=== PATIENT | male | born 1950 | race Caucasian/White ===

== ENCOUNTER → 2016-11-23 | Outpatient (CLI) | payer OTHER, MEDICARE ==
[~2016-11-23] MED LIST: AMLO-114 PO; APR25 PO; COEN1CAP17 PO; FLUT0.0529 NAE; HYDR25TA4 PO; INSUINJ14 SC; INSUINJ4 SQ; LISI40TA PO; LOVA40TA4 PO; METO1TAB69 PO; MULT-190 PO; OMEP40CA PO; OXYC-106 PO; POTA-335 PO; RST/30 PO; SERT-234 PO; TRAZ50TA35 PO
[2016-11-27 00:05] LABS: CRYPTOSPORIDIUM AG TC 37213 NOT DETECTED (NOT DETECTED); O&P GIARDIA AG NOT DETECTED (NOT DETECTED)
== END | disposition home or self-care (01) ==
LOC: C.LABPBG 14:09
PROVIDERS: ATTEND Internal Medicine
DX: K52.9 Noninfective gastroenteritis and colitis, unspecified (principal)

== ENCOUNTER → 2016-12-07 | Outpatient (CLI) | payer OTHER, MEDICARE ==
[2016-12-07 17:34] LABS: BASO % 0.3 %; BASO ABS # 0.03 K/uL (0-0.2); COMPLETE YES; EOS % 7.6 %; IG% 0.1 %; LYMPH % 21.9 %; LYMPH ABS # 1.92 K/uL (1.2-3.4); MEAN CELL VOLUME 86.8 fL (80-100); MEAN CORPUSCULAR HEMOGLOBIN 30.8 pg (25-34); MEAN CORPUSCULAR HGB CONC 35.5 g/dl (32-36); MEAN PLATELET VOLUME 10.3 fL (7.4-10.4); MONO % 6.4 %; NEUT % 63.7 %; PLATELET COUNT 243 K/uL (130-400); RED BLOOD COUNT 5.07 M/uL (4.7-6.1); WHITE BLOOD COUNT 8.76 K/uL (4.8-10.8)
[2016-12-07 17:50] LABS: ALT/SGPT 29 U/L (12-78); AST/SGOT 15 U/L (15-37); BLOOD UREA NITROGEN 18 mg/dl (7-18); BUN/CREATININE RATIO 10.8 (10-20); CALCIUM 9.3 mg/dl (8.5-10.1); CARBON DIOXIDE 28 mmol/L (21-32); CHLORIDE 100 mmol/L (98-107); GLUCOSE 125 mg/dl (70-99); POTASSIUM 3.2 mmol/L (3.5-5.1); SODIUM 139 mmol/L (136-145)
[2016-12-07 18:03] LABS: CHOLESTEROL/HDL RATIO 4.3; THYROID STIMULATING HORMONE 0.713 uIu/ml (0.300-4.500)
[2016-12-07 18:03] LABS: ALB/GLOB RATIO 1.2 (0.9-2); ALKALINE PHOSPHATASE 71 U/L (45-117); IMMUNOGLOBULN A 70.2 mg/dL (70-400); IMMUNOGLOBULN M 83.3 mg/dL (40-230)
[2016-12-10 13:18] LABS: ALBUMIN 4.4 G/DL (3.8-4.8); GAMMA GLOBULIN 0.9 G/DL (0.8-1.7); IMMUNOFIXATION IGA SERUM 66 MG/DL (81-463); IMMUNOFIXATION IGG SERUM 919 MG/DL (694-1618); IMMUNOFIXATION IGM SERUM 88 MG/DL (48-271); TOTAL PROTEIN 7.2 G/DL (6.2-8.3)
== END | disposition home or self-care (01) ==
LOC: C.LABPBG 11:58
PROVIDERS: ATTEND Internal Medicine Gastroenterology
DX: D47.2 Monoclonal gammopathy (principal); E78.5 Hyperlipidemia, unspecified; E11.22 Type 2 diabetes mellitus with diabetic chronic kidney disease; K22.70 Barrett's esophagus without dysplasia; K29.80 Duodenitis without bleeding; R63.0 Anorexia; R63.4 Abnormal weight loss; R53.83 Other fatigue

== ENCOUNTER → 2017-01-06 | Outpatient (CLI) | payer OTHER, MEDICARE ==
[2017-01-06 12:22] LABS: HEMATOCRIT 41.4 % (42-52); MEAN CELL VOLUME 86.3 fL (80-100); MEAN CORPUSCULAR HEMOGLOBIN 30.4 pg (25-34); MEAN CORPUSCULAR HGB CONC 35.3 g/dl (32-36); MEAN PLATELET VOLUME 9.9 fL (7.4-10.4); PLATELET COUNT 227 K/uL (130-400); WHITE BLOOD COUNT 9.37 K/uL (4.8-10.8)
[2017-01-06 12:31] LABS: BLOOD UREA NITROGEN 24 mg/dl (7-18); BUN/CREATININE RATIO 13.9 (10-20); CARBON DIOXIDE 31 mmol/L (21-32); CHLORIDE 100 mmol/L (98-107); GLUCOSE 156 mg/dl (70-99); PHOSPHORUS 3.1 mg/dl (2.5-4.9); POTASSIUM 3.1 mmol/L (3.5-5.1); SODIUM 139 mmol/L (136-145)
[2017-01-06 12:38] LABS: URINE APPEARANCE CLEAR (CLEAR); URINE BILIRUBIN NEG (NEG); URINE COLOR YELLOW; URINE EPITHELIAL CELL AUTO 0-5 /lpf (0-5); URINE NITRITE NEG (NEG); URINE SPECIFIC GRAVITY 1.015 (1.000-1.030); UROBILINOGEN NEG (NEG)
[2017-01-06 12:43] LABS: MANUAL MICROSCOPIC REQUIRED? NO; REVIEW REQ? NO
[2017-01-06 12:49] LABS: URINE PROTIEN/CREAT RATIO 0.1 (0-0.2); URINE TOTAL PROTEIN 13.4 mg/dl (0-11.9)
[2017-01-06 13:19] LABS: ESTIMATED AVERAGE GLUCOSE 111 mg/dl; HA1C FLAG Normal (Normal)
== END | disposition home or self-care (01) ==
LOC: C.LABPBG 09:29
PROVIDERS: ATTEND Internal Medicine Nephrology
DX: I12.9 Hypertensive chronic kidney disease with stage 1 through stage 4 chronic kidney disease, or unspecified chronic kidney disease (principal); N28.1 Cyst of kidney, acquired; E55.9 Vitamin D deficiency, unspecified; N18.2 Chronic kidney disease, stage 2 (mild); E11.22 Type 2 diabetes mellitus with diabetic chronic kidney disease

== ENCOUNTER → 2017-02-15 | Outpatient (CLI) | payer OTHER, MEDICARE ==
[~2017-02-15] MED LIST changes: +METO100T44 PO; -METO1TAB69 PO
== END | disposition home or self-care (01) ==
LOC: C.LABPBG 11:42
PROVIDERS: ATTEND Internal Medicine Gastroenterology
DX: E27.0 Other adrenocortical overactivity (principal)

== ENCOUNTER → 2017-04-25 | Outpatient (CLI) | payer OTHER, MEDICARE ==
[~2017-04-25] MED LIST changes: -METO100T44 PO; +METO1TAB69 PO
--- NOTE | 2017-04-25 15:28 | DIAGNOSTIC IMAGING REPORT ---
ULTRASOUND KIDNEYS AND BLADDER CLINICAL HISTORY: Renal cyst. COMPARISON STUDY: Renal ultrasound dated 04/26/[address] dated 07/10/2014. Abdominal MRI dated 10/21/2015. TECHNIQUE: Real-time, grayscale, and color flow sonography of the kidneys and bladder is performed. Images are reviewed in the transverse and longitudinal planes. FINDINGS: Kidneys: The kidneys demonstrate cortical atrophy. The right kidney measures 9.3 x 6.7 x 5.9 cm and the left kidney measures 10.1 x 5.5 x 4.2 cm. There is no hydronephrosis. No shadowing renal calculi are identified. Bilateral simple cysts measure up to 2.0 cm. There is unchanged appearance of a complex shadowing lesion in the lower pole the left kidney measuring up to 2.2 cm. No internal flow is shown color imaging. No perinephric fluid is identified. Bladder: The bladder is partially decompressed. The bladder wall appears mildly thickened and trabeculated suggesting the sequelae of chronic outlet obstruction. Ureteral jets were not seen. IMPRESSION: 1. The kidneys demonstrate cortical atrophy and are without hydronephrosis. 2. There is been no significant change in the appearance of an indeterminant hypoechoic/complex lesion arising from the lower pole of left kidney which measures 2.2 cm when compared to the 04/26/2016 examination. Continued follow-up is recommended. 3. Additional simple renal cysts are noted. 4. The bladder wall appears mildly thickened and trabeculated suggesting chronic outlet obstruction. Electronically signed by: Christiano Burnette M.D. 04/25/2017 3:27 PM Dictated Date/Time: 04/25/2017 3:23 PM
== END | disposition home or self-care (01) ==
LOC: C.ULTR 13:47
PROVIDERS: ATTEND Urology
DX: N28.1 Cyst of kidney, acquired (principal)

== ENCOUNTER → 2017-05-12 | Outpatient (CLI) | payer OTHER, MEDICARE ==
[~2017-05-12] VITALS: Ht 172.7 cm; Wt 99.7 kg
[2017-05-12 12:36] VITALS: BP 120/76; PULSE 72; Ht 172.7 cm; Wt 99.7 kg
== END | disposition home or self-care (01) ==
LOC: C.NEUR 11:30
PROVIDERS: ATTEND Internal Medicine Pulmonary Disease
DX: G47.33 Obstructive sleep apnea (adult) (pediatric) (principal)

== ENCOUNTER → 2017-05-12 | Outpatient (CLI) | payer OTHER, MEDICARE ==
--- NOTE | 2017-05-19 09:36 | CODING QUERY MEDICAL NECESSITY ---
SUPPORTING DIAGNOSIS NEEDED Dr. Rodgers, A supporting diagnosis is required for the test/procedure performed on this patient in order for us to be reimbursed by the patient's insurance. Please provide a supporting diagnosis for the following test/procedure listed below next to the test name along with your signature. *If there is no additional diagnosis for this patient that would support the following test/procedure please document that below next to the test/procedure. Test(s)/Procedure(s) that require a supporting diagnosis: * [id number] PSA DIAGNOSIS: DATE OF SERVICE: 05/12/17 Provider Signature: Date: Thank you Michi Haskins [facility] Once completed, please kindly fax back to [phone] For questions please call [phone]
== END | disposition home or self-care (01) ==
LOC: C.LABPBG 13:44
PROVIDERS: ATTEND Internal Medicine
DX: N28.1 Cyst of kidney, acquired (principal); G47.33 Obstructive sleep apnea (adult) (pediatric); N40.1 Benign prostatic hyperplasia with lower urinary tract symptoms

== ENCOUNTER → 2017-05-26 | Outpatient (CLI) | payer OTHER, MEDICARE ==
[2017-05-26 17:48] LABS: ALT/SGPT 27 U/L (12-78); AST/SGOT 15 U/L (15-37); BLOOD UREA NITROGEN 17 mg/dl (7-18); BUN/CREATININE RATIO 9.4 (10-20); CALCIUM 9.1 mg/dl (8.5-10.1); CARBON DIOXIDE 28 mmol/L (21-32); CHLORIDE 106 mmol/L (98-107); GLUCOSE 149 mg/dl (70-99); HDL CHOLESTEROL 42 mg/dl; POTASSIUM 3.7 mmol/L (3.5-5.1); SODIUM 140 mmol/L (136-145)
[2017-05-26 17:50] LABS: ALB/GLOB RATIO 1.2 (0.9-2); ALKALINE PHOSPHATASE 70 U/L (45-117); CHOLESTEROL 155 mg/dl (0-200); CHOLESTEROL/HDL RATIO 3.7; LDL CHOLESTEROL CALCULATED 68 mg/dl; TRIGLYCERIDES 226 mg/dl (0-150); VERY LOW DENSITY LIPOPROT CALC 45 mg/dl
[2017-05-27 07:27] LABS: ESTIMATED AVERAGE GLUCOSE 126 mg/dl; HA1C FLAG Normal (Normal)
--- NOTE | 2017-06-01 07:54 | CODING QUERY MEDICAL NECESSITY ---
CQSUPPORTING DIAGNOSIS NEEDED A supporting diagnosis is required for the test/procedure performed on this patient in order for us to be reimbursed by the patient's insurance. Please provide a supporting diagnosis for the following test/procedure listed below next to the test name along with your signature. *If there is no additional diagnosis for this patient that would support the following test/procedure please document that below next to the test/procedure. Test(s)/Procedure(s) that require a supporting diagnosis: PEACE 05/26/17 GLYCATED HEMOGLOBIN TEST Provider Signature: Date: Thank you Jeanie [facility] Once completed, please kindly fax back to [phone] For questions please call [phone]
== END | disposition home or self-care (01) ==
LOC: C.LABPBG 11:57
PROVIDERS: ATTEND Internal Medicine
DX: G89.4 Chronic pain syndrome (principal); E11.9 Type 2 diabetes mellitus without complications

== ENCOUNTER → 2017-06-10 | Outpatient (CLI) | payer OTHER, MEDICARE ==
--- NOTE | 2017-06-10 16:33 | DIAGNOSTIC IMAGING REPORT ---
CHEST 2 VIEWS ROUTINE CLINICAL HISTORY: 67 years-old Male presenting with asbestos exposure. TECHNIQUE: PA and lateral views of the chest were obtained. COMPARISON: 04/03/2014. FINDINGS: Atherosclerosis of aortic arch. Cardiac silhouette within normal limits, apparent decrease in size from prior. Lungs and pleural spaces clear. Degenerative changes of the spine. Mild anterior vertebral body height loss in one of the mid thoracic vertebral bodies. Cholecystectomy clips noted. IMPRESSION: 1. No acute cardiopulmonary disease. 2. Given the clinical history of the specimens exposure, calcified pleural plaques would be better demonstrated on CT. Electronically signed by: Daniel Prescott M.D. 06/10/2017 4:32 PM Dictated Date/Time: 06/10/2017 4:30 PM
== END | disposition home or self-care (01) ==
LOC: C.RAD 15:11
PROVIDERS: ATTEND Internal Medicine
DX: Z77.090 Contact with and (suspected) exposure to asbestos (principal)

== ENCOUNTER → 2017-06-17 | Outpatient (CLI) | payer OTHER, MEDICARE ==
[2017-06-17 17:23] LABS: BASO % 0.4 %; BASO ABS # 0.03 K/uL (0-0.2); COMPLETE YES; EOS % 5.1 %; HEMATOCRIT 44.5 % (42-52); IG% 0.3 %; LYMPH % 22.5 %; LYMPH ABS # 1.73 K/uL (1.2-3.4); MEAN CELL VOLUME 86.7 fL (80-100); MEAN CORPUSCULAR HGB CONC 35.7 g/dl (32-36); MEAN PLATELET VOLUME 10.3 fL (7.4-10.4); MONO % 7.1 %; NEUT % 64.6 %; PLATELET COUNT 217 K/uL (130-400); RED BLOOD COUNT 5.13 M/uL (4.7-6.1)
[2017-06-17 17:44] LABS: ALT/SGPT 23 U/L (12-78); BLOOD UREA NITROGEN 18 mg/dl (7-18); BUN/CREATININE RATIO 9.2 (10-20); CALCIUM 9.7 mg/dl (8.5-10.1); CARBON DIOXIDE 25 mmol/L (21-32); CHLORIDE 101 mmol/L (98-107); GLUCOSE 161 mg/dl (70-99); SODIUM 136 mmol/L (136-145)
[2017-06-17 17:47] LABS: ALB/GLOB RATIO 1.2 (0.9-2); ALKALINE PHOSPHATASE 72 U/L (45-117); AST/SGOT 18 U/L (15-37)
[2017-06-21 19:10] LABS: ALBUMIN 4.6 G/DL (3.8-4.8); GAMMA GLOBULIN 0.7 G/DL (0.8-1.7); IMMUNOFIXATION IGA SERUM 75 MG/DL (81-463); IMMUNOFIXATION IGG SERUM 870 MG/DL (694-1618); IMMUNOFIXATION IGM SERUM 84 MG/DL (48-271); TOTAL PROTEIN 7.2 G/DL (6.2-8.3)
== END | disposition home or self-care (01) ==
LOC: C.LABPBG 14:17
PROVIDERS: ATTEND Internal Medicine
DX: D47.2 Monoclonal gammopathy (principal)

== ENCOUNTER → 2017-06-21 | Outpatient (CLI) | payer OTHER, MEDICARE ==
--- NOTE | 2017-06-21 13:56 | DIAGNOSTIC IMAGING REPORT ---
CT SCAN OF THE CHEST WITHOUT IV CONTRAST CLINICAL HISTORY: Asbestos exposure. Dyspnea. COMPARISON STUDY: Chest x-ray dated 06/10/2017. TECHNIQUE: CT scan of the thorax was performed from the thoracic inlet to the upper abdomen. Images are reviewed in the axial, sagittal, and coronal planes. IV contrast was not administered for this examination as per the referring clinician. A dose lowering technique was utilized adhering to the principles of ALARA. CT DOSE: 666.23 mGycm FINDINGS: Thyroid: Imaged portions of the thyroid gland are normal in size and attenuation. Thoracic aorta: There is mild atherosclerotic calcification of the thoracic aorta, which is normal in caliber and demonstrates standard 3-vessel arch anatomy. Heart: The heart is enlarged and there is a small to moderate pericardial effusion. The coronary arteries are densely calcified. The pulmonary trunk is normal in caliber. Lungs and pleural spaces: There is no airspace consolidation typical for pneumonia. Trace pleural effusions are identified. The trachea and central airways are clear. There are 6 mm and 7 mm foci of nodular pleural thickening seen along the right major fissure on images #114 and #122. Mediastinum: There is no mediastinal lymphadenopathy. Adilene: Not well assessed without IV contrast. Axillae: There is no axillary lymphadenopathy. Upper abdomen: Cholecystectomy clips are noted. There is a tiny hiatal hernia. A subcentimeter cortical hypodensity in the left upper pole likely represent a tiny complex cyst but is too small for definitive characterization. Skeletal structures: Spondylotic change is seen throughout the thoracic spine. Calcified joint bodies are noted in the left shoulder. No lytic or blastic bony lesions are seen. IMPRESSION: 1. Cardiomegaly noting a small to moderate pericardial effusion. 2. There are trace pleural effusions. No airspace consolidation is seen typical for pneumonia. 3. There are 2 subcentimeter foci of nodular pleural thickening along the right major fissure. These are pathologically indeterminant but of low suspicion. These can be followed if clinically warranted. See below. Please refer to below summary of Fleischner criteria recommendations for follow-up of incidental CT nodules (Tavo Multani, Guidelines for management of small pulmonary nodules detected on CT scans: A statement from the Fleischner Society, Radiology 237: [phone].) SOLID NODULES Solitary nodule size: <6 mm * low risk patients: no follow-up needed * high risk patients: optional CT at 12 months Solitary nodule size: 6-8 mm * low risk patients: follow-up at 6-12 months, then consider further follow-up at 18-24 months * high risk patients: initial follow-up CT at 6-12 months and then at 18-24 months if no change Solitary nodule size: >8 mm * either low or high risk patients - consider follow-up CT at 3 months, and/or CT-PET, and/or biopsy Multiple nodules size: <6 mm * low risk patients: no routine follow-up * high risk patients: optional CT at 12 months Multiple nodules size: 6-8 mm * low risk patients: follow-up at 3-6 months, then consider further follow-up at 18-24 months * high risk patients: follow-up at 3-6 months, then at 18-24 months if no change Multiple nodules size: >8 mm * low risk patients: follow-up at 3-6 months, then consider further follow-up at 18-24 months * high risk patients: follow-up at 3-6 months, then at 18-24 months if no change Note: newly detected indeterminate nodule in persons 35 years of age or older. * low risk patients: minimal or absent history of smoking and/or other known risk factors * high risk patients: history of smoking or of other known risk factors (e.g. first degree relative with lung cancer, or exposure to asbestos, radon, uranium) * if a nodule up to 8 mm is partly solid or is ground glass further follow-up is required after 24 months to exclude possible slow growing adenocarcinoma (MENA) SUBSOLID NODULES Solitary pure ground-glass nodule * nodule size <6 mm - no CT follow-up required * nodule size >=6 mm - follow-up CT at 6-12 months, then every 2 years until 5 years Solitary part-solid nodule * nodule size <6 mm - no CT follow-up required * nodule size >=6 mm - follow-up CT at 3-6 months. If unchanged, and solid component remains <6 mm, then annual follow-up for 5 years Multiple subsolid nodules * nodule size <6 mm - follow-up CT at 3-6 months, consider further follow-up at 2 and 4 years if stable * nodule size >=6 mm - follow-up CT at 3-6 months, subsequent management based on the most suspicious nodule(s) Electronically signed by: Christiano Burnette M.D. 06/21/2017 1:55 PM Dictated Date/Time: 06/21/2017 1:49 PM
== END | disposition home or self-care (01) ==
LOC: C.CTS 13:29
PROVIDERS: ATTEND Internal Medicine
DX: Z77.090 Contact with and (suspected) exposure to asbestos (principal)

== ENCOUNTER → 2017-06-30 | Outpatient (CLI) | payer OTHER, MEDICARE ==
[2017-06-30 13:54] LABS: BLOOD UREA NITROGEN 23 mg/dl (7-18); BUN/CREATININE RATIO 11.6 (10-20); CALCIUM 9.5 mg/dl (8.5-10.1); CARBON DIOXIDE 29 mmol/L (21-32); CHLORIDE 104 mmol/L (98-107); GLUCOSE 115 mg/dl (70-99); POTASSIUM 3.9 mmol/L (3.5-5.1); SODIUM 138 mmol/L (136-145)
== END | disposition home or self-care (01) ==
LOC: C.LABBC 11:46
PROVIDERS: ATTEND Internal Medicine
DX: E78.6 Lipoprotein deficiency (principal)

== ENCOUNTER → 2017-10-18 | Outpatient (CLI) | payer OTHER, MEDICARE ==
[~2017-10-18] MED LIST changes: -AMLO-114 PO; +AMLO10TA3 PO; +BENZ100C84 PO; +CINN1CAP2 PO; +FLUO20CA36 PO; +FLUT0.15 NAE; +HYDR-4079 PO; +KETO10TA PO; +METO100T44 PO; -METO1TAB69 PO; +OMEG10007 PO; -OXYC-106 PO; +OXYC-594 PO; +PANT40TA PO; +POTA20TA13 PO; +TURM1CAP2 PO; +[UNRECOGNIZED DRUG - CODE] PO; +[UNRECOGNIZED DRUG - OTHER] PO
--- NOTE | 2017-10-18 09:22 | DIAGNOSTIC IMAGING REPORT ---
(CHEST) THORAX WITHOUT CLINICAL HISTORY: 67 years-old Male presenting with LUNG NODULE, cough. TECHNIQUE: Multidetector CT imaging of the chest was performed without the use of intravenous contrast. IV contrast: None. A dose lowering technique was used consistent with the principles of ALARA (as low as reasonably achievable). COMPARISON: 06/21/2017. CT DOSE (mGy.cm): The estimated cumulative dose is 541.51 mGycm. FINDINGS: [employer] topogram: Unremarkable. On soft tissue windows, normal thyroid and thoracic inlet. No axillary, supraclavicular, or mediastinal lymphadenopathy. Evaluation of the tamiko limited without intravenous contrast. Atherosclerosis of the aorta. Normal heart size. Coronary artery calcification. Small pericardial effusion. No pleural effusion. Cholecystectomy clips noted. Unchanged mild perinephric fat stranding. Nodular thickening of the left adrenal gland, nonspecific. On lung windows, solid polygonal fissural nodule in the right middle lobe measuring 6 mm (series 4 image 173), new from prior. Solid triangular peripheral 3 mm nodule in the right middle lobe (series 4 image 188), unchanged. Previously noted solid polygonal fissural 7 mm nodule in the superior segment of the right lower lobe (series 4 image 116), unchanged. Adjacent slightly more superior solid 4 mm fissural nodule in the superior segment of the right lower lobe (series 4 image 109), unchanged. Airways patent. On bone windows, degenerative changes of the spine. Old rib fracture one of the right posterior ribs. Fluid noted in the left subscapularis muscle associated with chronic fracture of the left coracoid process. IMPRESSION: 1. Interval development of a new 6 mm solid nodule in the right middle lobe. Remaining nodules measuring up to 7 mm in the right lung stable from prior. Follow-up recommended per Brooke Society 2017 recommendations below. 2. Persistent small pericardial effusion. Please refer to below summary of Fleischner Society 2017 recommendations for follow-up of incidental CT nodules (H Rangel et al. Guidelines for management of incidental pulmonary nodules detected on CT images: From the Fleischner Society 2017. Radiology 2017; 284: 228-243.) SOLID NODULES Single nodule; size < 6 mm * Low risk patients: No routine follow-up * High risk patients: Optional CT at 12 months Single nodule; size 6-8 mm * Low risk patients: CT at 6-12 months, then consider CT at 18-24 months * High risk patients: CT at 6-12 months, then at 18-24 months Single nodule; size > 8 mm * Either low or high risk patients: Considered CT at 3 months, PET/CT, or tissue sampling Multiple nodules; size < 6 mm * Low risk patients: No routine follow up * High risk patients: Optional CT at 12 months Multiple nodules; size 6-8 mm * Low risk patients: CT at 3-6 months, then consider CT at 18-24 months * High risk patients: CT at 3-6 months, then at 18-24 months Multiple nodules; size > 8 mm * Low risk patients: CT at 3-6 months, then consider at 18-24 months * High risk patients: CT at 3-6 months, then at 18-24 months Note: These guidelines apply to incidental nodules. These guidelines do not apply to patients younger than 35 years, immunocompromised patients, or patients with cancer. * Low risk patients: Minimal or absent history of smoking and/or other known risk factors * High risk patients: History of smoking, exposure to other carcinogens, emphysema, fibrosis, upper lobe location, family history of lung cancer, etc. * If a nodule up to 8 mm is partly solid or is ground glass, further follow-up is required after 24 months to exclude possible slow growing adenocarcinoma. SUBSOLID NODULES Single ground-glass nodule * Nodule size < 6 mm: No routine follow-up * Nodule size > or = 6 mm: CT at 6-12 months to confirm persistence, then CT every 2 years until 5 years Single part-solid nodule * Nodule size < 6 mm: No routine follow-up * Nodules size > or = 6 mm: CT at 3-6 months to confirm persistence. If unchanged and solid component remains < 6 mm, annual CT should be performed for 5 years Multiple nodules * Nodule size < 6 mm: CT at 3-6 months. If stable, consider CT at 2 and 4 years. * Nodules size > or = 6 mm: CT at 3-6 months. Subsequent management based on the most suspicious nodule(s) Electronically signed by: Daniel Prescott M.D. 10/18/2017 9:21 AM Dictated Date/Time: 10/18/2017 9:14 AM
== END | disposition home or self-care (01) ==
LOC: C.CTS 08:59
PROVIDERS: ATTEND Physician Assistant
DX: R05 Cough (principal); R91.1 Solitary pulmonary nodule

== ENCOUNTER → 2017-12-05 | Outpatient (CLI) | payer OTHER, MEDICARE ==
[~2017-12-05] MED LIST changes: +AMLO-114 PO; -AMLO10TA3 PO; -BENZ100C84 PO; -CINN1CAP2 PO; -FLUO20CA36 PO; -FLUT0.15 NAE; -HYDR-4079 PO; -KETO10TA PO; -OMEG10007 PO; +OXYC-106 PO; -OXYC-594 PO; -PANT40TA PO; -POTA20TA13 PO; -TURM1CAP2 PO; -[UNRECOGNIZED DRUG - CODE] PO; -[UNRECOGNIZED DRUG - OTHER] PO
[2017-12-05 12:23] LABS: BASO % 0.7 %; BASO ABS # 0.05 K/uL (0-0.2); EOS ABS # 0.65 K/uL (0-0.5); HEMATOCRIT 46.3 % (42-52); HEMOGLOBIN 16.1 g/dL (14.0-18.0); IG# 0.03 K/uL (0.00-0.02); LYMPH ABS # 1.73 K/uL (1.2-3.4); MEAN CELL VOLUME 87.5 fL (80-100); MEAN CORPUSCULAR HEMOGLOBIN 30.4 pg (25-34); MEAN CORPUSCULAR HGB CONC 34.8 g/dl (32-36); MEAN PLATELET VOLUME 9.9 fL (7.4-10.4); MONO % 6.8 %; MONO ABS # 0.49 K/uL (0.11-0.59); NEUT % 59.1 %; NEUT ABS # 4.25 K/uL (1.4-6.5); PLATELET COUNT 213 K/uL (130-400); RED CELL DISTRIBUTION WIDTH SD 41.4 fL (36.4-46.3)
[2017-12-05 12:45] LABS: ALBUMIN 3.9 gm/dl (3.4-5.0); ALT/SGPT 31 U/L (12-78); AST/SGOT 14 U/L (15-37); BLOOD UREA NITROGEN 17 mg/dl (7-18); CARBON DIOXIDE 26 mmol/L (21-32); CREATININE 1.69 mg/dl (0.60-1.40); GLUCOSE 161 mg/dl (70-99); POTASSIUM 3.6 mmol/L (3.5-5.1); SODIUM 137 mmol/L (136-145)
[2017-12-05 12:57] LABS: ALKALINE PHOSPHATASE 72 U/L (45-117); CHOLESTEROL 169 mg/dl (0-200); LDL CHOLESTEROL CALCULATED 91 mg/dl; TOTAL PROTEIN 7.5 gm/dl (6.4-8.2)
[2017-12-05 13:01] LABS: HEMOGLOBIN A1C 6.3 % (4.5-5.6)
== END ==
LOC: C.LABPBG 10:19
PROVIDERS: ATTEND Internal Medicine Nephrology
DX: I12.9 Hypertensive chronic kidney disease with stage 1 through stage 4 chronic kidney disease, or unspecified chronic kidney disease (principal); N18.2 Chronic kidney disease, stage 2 (mild); E78.5 Hyperlipidemia, unspecified; F32.9 Major depressive disorder, single episode, unspecified; G47.33 Obstructive sleep apnea (adult) (pediatric); E55.9 Vitamin D deficiency, unspecified; K22.70 Barrett's esophagus without dysplasia; D47.2 Monoclonal gammopathy; E78.1 Pure hyperglyceridemia; E11.9 Type 2 diabetes mellitus without complications; Z77.090 Contact with and (suspected) exposure to asbestos

== ENCOUNTER 2018-01-04 18:01 | Observation (INO) | payer OTHER, MEDICARE ==
[~2018-01-04] VITALS: Ht 177.8 cm; Wt 98.6 kg
[2018-01-04] MEDS ORDERED: HydrALAZINE HCL 20 MG/ML VIAL IV STA ×2 (18:09→19:51)
--- NOTE | 2018-01-04 18:22 | EMERGENCY ROOM VISIT NOTE ---
History Report prepared by Reagan: Raymond Al Under the Supervision of: Dr. Christiano Bridges M.D. First contact with patient: 18:07 Chief Complaint: HYPERTENSION Stated Complaint: HIGH BLOOD PRESSURE History of Present Illness The patient is a 67 year old male who presents to the Emergency Room with complaints of persistent hypertension for the past couple of days, though it has gotten worse over the past month. The patient states that he can feel ringing in his ears. He has a history of hypertension, and he states that his blood pressure medications have changed over the years but, he believes he is taking them all as they are currently prescribed. The patient states that for a month he has been having some mild left chest discomfort intermittently, though he states that it might be from his back. The chest pain is not truly exertional although he is typically not very active. He states that he is short of breath at times, though this is not really new. He denies any urinary symptoms and fevers. Source of History: patient Onset: the past few days though worse over the past month Position: other (global) Quality: other (hypertension) Timing: worsening Associated Symptoms: + chest pain, + SOB, No fevers, No urinary symptoms Note: Associated symptoms: Ringing in his ears. Review of Systems See HPI for pertinent positives & negatives. A total of 10 systems reviewed and were otherwise negative. Past Medical & Surgical Medical Problems: (1) Diabetes (2) HTN (hypertension) Family History Diabetes mellitus FH: heart disease Hypertension Social History Smoking Status: Never Smoker Marital Status: Housing Status: lives with family Occupation Status: retired Current/Historical Medications Scheduled Amlodipine (Norvasc), 10 MG PO QPM Cinnamon (Cinnamon), 500 MG PO BID Fish Oil (Roosevelt-3), 1 CAP PO DAILY Fluoxetine HCl (Fluoxetine HCl), 60 MG PO DAILY Fluticasone Propionate (Nasal) (Flonase Allergy Relief), 2 SPRAYS DEMETRIO DAILY Hydralazine Hcl (Apresoline), 25 MG PO BID Hydrochlorothiazide (Hctz), 25 MG PO QAM Lisinopril (Zestril), 40 MG PO QAM Lovastatin (Mevacor), 40 MG PO QAM Pantoprazole (Protonix), 40 MG PO DAILY Potassium Chloride Microencaps (Potassium Chloride Er), 40 MEQ PO DAILY Pumpkin Seed (Uriplex), 1 TAB PO DAILY Temazepam (Restoril), 30 MG PO HS Trazodone Hcl (Trazodone), 50-100 MG PO HS Turmeric (Curcuma Longa) (Turmeric), 1 CAP PO DAILY [Thyme], 1 TAB PO DAILY Scheduled PRN Benzonatate (Tessalon Perles), 1 CAP PO TID PRN for Cough Hydrocodone/Acetaminophen 10MG/325MG (Lodi 10MG/325MG), 1 TAB PO Q6 PRN for Pain Allergies Coded Allergies: Penicillins (Verified Allergy, Intermediate, HIVES, 07/31/15) Dust (Verified Allergy, Unknown, ., 07/31/15) Metoprolol (Verified Allergy, Unknown, GI SYMPTOMS, 08/19/15) POLLEN (Verified Allergy, Unknown, ., 07/31/15) Physical Exam Vital Signs Date Time Temp Pulse Resp B/P (MAP) Pulse Ox O2 Delivery O2 Flow Rate FiO2 01/04/18 20:25 78 01/04/18 20:06 72 20 167/104 Room Air 01/04/18 19:31 77 17 185/121 01/04/18 19:04 187/117 01/04/18 19:01 70 14 01/04/18 18:34 96 Room Air 01/04/18 18:12 156/102 01/04/18 18:04 36.4 91 18 202/120 96 Room Air Physical Exam GENERAL: Patient is in no acute distress. HEENT: No acute trauma, normocephalic atraumatic, mucous membranes moist, no nasal congestion, no scleral icterus. NECK: No stridor, no adenopathy, no meningismus, trachea is midline. LUNGS: Clear to auscultation bilaterally, no wheeze, no rhonchi, breath sounds equal. HEART: Without murmurs gallops or rubs, regular rate and rhythm. ABDOMEN: Soft, nontender, bowel sounds positive, no hernias, no peritonitis. EXTREMITIES: No cyanosis or edema, full range of motion of all the joints without pain or difficulty, no signs for acute trauma. NEUROLOGIC: Oriented x 3, no acute motor or sensory deficits, no focal weakness. SKIN: No rash, no jaundice, no diaphoresis. Medical Decision & Procedures ER Provider Diagnostic Interpretation: Radiology results as stated below per my review and radiologist interpretation: CHEST ONE VIEW PORTABLE HISTORY: 67 years-old Male sob acute shortness of breath COMPARISON: Chest radiograph 06/10/2017, CT chest 10/18/2017 TECHNIQUE: Portable AP view of the chest FINDINGS: Cardiomediastinal and hilar silhouettes are within normal limits. There is no pneumothorax, pleural effusion, focal airspace consolidation or overt pulmonary edema. Degenerative changes are seen about the bilateral shoulders and spine. IMPRESSION: No acute process. The above report was generated using voice recognition software. It may contain grammatical, syntax or spelling errors. Electronically signed by: Homer Whyte M.D. 01/04/2018 7:01 PM Dictated Date/Time: 01/04/2018 7:00 PM Laboratory Results 01/04/18 18:42 01/04/18 18:42 Test 01/04/18 18:42 Red Blood Count 5.00 M/uL (4.7-6.1) Mean Corpuscular Volume 85.8 fL (80-100) Mean Corpuscular Hemoglobin 30.6 pg (25-34) Mean Corpuscular Hemoglobin Concent 35.7 g/dl (32-36) RDW Standard Deviation 40.7 fL (36.4-46.3) RDW Coefficient of Variation 13.0 % (11.5-14.5) Mean Platelet Volume 9.4 fL (7.4-10.4) Anion Gap 8.0 mmol/L (3-11) Est Creatinine Clear Calc Drug Dose 54.8 ml/min Estimated GFR () 52.9 Estimated GFR (Non- 45.6 BUN/Creatinine Ratio 11.2 (10-20) Calcium Level 9.0 mg/dl (8.5-10.1) Total Bilirubin 0.6 mg/dl (0.2-1) Aspartate Amino Transf (AST/SGOT) 14 U/L (15-37) Alanine Aminotransferase (ALT/SGPT) 25 U/L (12-78) Alkaline Phosphatase 66 U/L (45-117) Troponin I < 0.015 ng/ml (0-0.045) Total Protein 7.2 gm/dl (6.4-8.2) Albumin 3.8 gm/dl (3.4-5.0) Globulin 3.4 gm/dl (2.5-4.0) Albumin/Globulin Ratio 1.1 (0.9-2) Thyroid Stimulating Hormone (TSH) 0.923 uIu/ml (0.300-4.500) Laboratory results reviewed by me. Medications Administered Medications (Trade) Dose Ordered Sig/Bria Route Start Time Stop Time Status Last Admin Dose Admin Hydralazine HCl (HydrALAZINE INJ) 10 mg NOW STAT IV 01/04/18 18:09 01/04/18 18:16 DC 01/04/18 19:01 10 MG Hydralazine HCl (HydrALAZINE INJ) 10 mg NOW STAT IV 01/04/18 19:51 01/04/18 19:52 DC 01/04/18 20:03 10 MG Acetaminophen (Tylenol Tab) 1,000 mg NOW STAT PO 01/04/18 19:51 01/04/18 19:52 DC 01/04/18 20:02 1,000 MG ECG Per My Interpretation Indication: chest pain Rate (beats per minute): 67 Rhythm: normal sinus Findings: other (No ST elevation or PVCs) Change: REPEAT EKG: Normal sinus rhythm at 78bpm. Non-specific ST change. No PVC. No ST elevation. ED Course 1806: The patient was evaluated in room C7. A complete history and physical exam was performed. 1808: Hydralazine HCl 10mg IV 1949: I reevaluated the patient, and his pressure is still high. 1950: Tylenol Tab 1000mg PO, Hydralazine HCl 10mg IV 2037: I reassessed the patient, and he thinks that he is having more chest pain than before. I discussed the treatment plan with him, and he was agreeable. 2043: Aspirin 324mg PO 2044: Nitroglycerin 0.5 inch EXT 2049: I discussed the patient's case with Sushma Vogel 2nd year resident working with Dr. Henderson, and she is going to evaluate the patient for further management. Medical Decision Differential diagnoses considered include essential hypertension, missed medication dosing, renal failure, liver failure, cardiac ischemia, cardiomegaly , electrolyte imbalance. There is no leukocytosis or worrisome anemia. No significant electrolyte abnormality or kidney failure. There is no hepatitis. The patient appears to be in a euthyroid state. EKG shows a normal sinus rhythm, no acute ischemia. Cardiac enzyme testing 1 does not suggest acute cardiac injury. Repeat EKG shows similar findings to the first EKG performed. Chest film does not show mediastinal widening, pneumonia or pneumothorax. On exam, there were no focal neurologic deficits. The patient was not toxic. He did seem slightly anxious. The patient's blood pressure was quite high. He received IV hydralazine, he received a second dose of IV hydralazine. Patient was given some oral Tylenol for a mild headache. He received oral aspirin and nitroglycerin paste. His blood pressure is improving. The patient is on numerous medications for blood pressure and it seems that he may have not been taking the hydralazine as prescribed--he initially told me he was only taking his hydralazine once a day in the morning.. This may have led to the higher blood pressure. The patient has been complaining of some chest pain for about a month. With the chest pain, with the high blood pressure, I did think further cardiac workup was required. I did speak with the patient and case management. I discussed the case with the on-call hospitalist. Right now, the patient appears to be resting comfortably. Medication Reconcilliation Current Medication List: was personally reviewed by me Blood Pressure Screening Patient's blood pressure: Elevated blood pressure Blood pressure disposition: Referred to PCP Monitored by the hospitalist Consults Time Called: 2045 Consulting Physician: Sushma Vogel 2nd year resident working with Dr. Henderson Returned Call: 2049 I discussed the patient's case with Sushma Vogel 2nd year resident working with Dr. Henderson, and she is going to evaluate the patient for further management. Impression Primary Impression: Precordial chest pain Additional Impression: Hypertensive urgency Critical Care I have personally spent greater than 30 minutes of critical care time in the direct management of this patient. This includes bedside care, interpretation of diagnostic studies and testing, discussion with consultants, the patient, and family members, and other required patient management activities. This 30 minutes is in excess of all separately billable procedures. Scribe Attestation The scribe's documentation has been prepared under my direction and personally reviewed by me in its entirety. I confirm that the note above accurately reflects all work, treatment, procedures, and medical decision making performed by me. Departure Information Dispostion Being Evaluated By Hospitalist Referrals Daniel Peter M.D. (PCP) Patient Instructions My [facility] Problem Qualifiers
[2018-01-04 18:54] LABS: HEMATOCRIT 42.9 % (42-52); HEMOGLOBIN 15.3 g/dL (14.0-18.0); MEAN CELL VOLUME 85.8 fL (80-100); MEAN CORPUSCULAR HEMOGLOBIN 30.6 pg (25-34); MEAN CORPUSCULAR HGB CONC 35.7 g/dl (32-36); MEAN PLATELET VOLUME 9.4 fL (7.4-10.4); PLATELET COUNT 178 K/uL (130-400); RED CELL DISTRIBUTION WIDTH SD 40.7 fL (36.4-46.3); WHITE BLOOD COUNT 6.85 K/uL (4.8-10.8)
--- NOTE | 2018-01-04 19:03 | DIAGNOSTIC IMAGING REPORT ---
CHEST ONE VIEW PORTABLE HISTORY: 67 years-old Male sob acute shortness of breath COMPARISON: Chest radiograph 06/10/2017, CT chest 10/18/2017 TECHNIQUE: Portable AP view of the chest FINDINGS: Cardiomediastinal and hilar silhouettes are within normal limits. There is no pneumothorax, pleural effusion, focal airspace consolidation or overt pulmonary edema. Degenerative changes are seen about the bilateral shoulders and spine. IMPRESSION: No acute process. The above report was generated using voice recognition software. It may contain grammatical, syntax or spelling errors. Electronically signed by: Homer Whyte M.D. 01/04/2018 7:01 PM Dictated Date/Time: 01/04/2018 7:00 PM
[2018-01-04 19:16] LABS: ALBUMIN 3.8 gm/dl (3.4-5.0); ALT/SGPT 25 U/L (12-78); AST/SGOT 14 U/L (15-37); BLOOD UREA NITROGEN 17 mg/dl (7-18); CARBON DIOXIDE 26 mmol/L (21-32); CREATININE 1.56 mg/dl (0.60-1.40); GLUCOSE 160 mg/dl (70-99); POTASSIUM 3.3 mmol/L (3.5-5.1); SODIUM 137 mmol/L (136-145)
[2018-01-04 19:26] LABS: ALKALINE PHOSPHATASE 66 U/L (45-117); TOTAL PROTEIN 7.2 gm/dl (6.4-8.2)
[2018-01-04] MEDS ORDERED: TURM1CAP2 PO (19:50)
[2018-01-04] MEDS ORDERED: HYDR-4079 PO (19:50)
[2018-01-04] MEDS ORDERED: [UNRECOGNIZED DRUG - OTHER] PO (19:50)
[2018-01-04] MEDS ORDERED: POTA20TA13 PO (19:50)
[2018-01-04] MEDS ORDERED: OMEG10007 PO (19:50)
[2018-01-04] MEDS ORDERED: CINN1CAP2 PO (19:50)
[2018-01-04] MEDS ORDERED: FLUT0.15 NAE (19:50)
[2018-01-04] MEDS ORDERED: BENZ100C84 PO (19:50)
[2018-01-04] MEDS ORDERED: PANT40TA PO (19:50)
[2018-01-04] MEDS ORDERED: [UNRECOGNIZED DRUG - CODE] PO (19:50)
[2018-01-04] MEDS ORDERED: FLUO20CA36 PO (19:50)
[2018-01-04] MEDS ORDERED: ACETAMINOPHEN 500 MG TAB PO STA (19:51)
[2018-01-04] MEDS ORDERED: ASPIRIN 81 MG CHEW PO STA (20:44)
[2018-01-04] MEDS ORDERED: NITROGLYCERIN 2% OINTMENT 30GM TUBE EXT ONE (20:45)
[2018-01-04 21:06] VITALS: O2SAT 96; Ht 177.8 cm; Wt 98.6 kg
--- NOTE | 2018-01-04 22:16 | History and Physical ---
History & Physical Date & Time of Service: Jan 04, 2018 at 22:15 Chief Complaint: High Blood Pressure Primary Care Physician: Daniel Peter M.D. History of Present Illness Source: patient, spouse 67 yo M with pMHx HTN, HLD, DM, CKD, GERD presents with 1 week history of progressively worsening blood pressure. Patient began to check more frequently after appreciating ringing in his ears and noted SBP ~170-190 and DBP 80-100. He states compliance with his 4 antihypertensive medications, and mentions metoprolol was discontinued 1 month ago, because he did not feel well on it. He has had intermittent left sided chest pains for several weeks - it is non exertional and does not always correspond with high blood pressure readings. He is experiencing dyspnea but attributes this to allergic rhinitis, for which he is taking Flonase qAM and Afrin HS. When asked about breaks from Afrin, he states he has been taking it every single night for years, and personally believes it is unlikely to be affecting his BP. He states intermittent headaches but no vision changes, no nausea/vomiting. He does not appreciate change in his exercise tolerance and still walks his dog without symptoms. He wears CPAP at night. He otherwise denies fevers/chills, palpitations, heart racing, abdominal pain, or rashes. He states intermittent lower extremity swelling, although none today. He is tolerating diet and denies issues with voiding or stooling. In the ED, patient was treated with hydralazine 10mg x 2 with improvement in BP. ROS is unremarkable except as noted above. Past Medical/Surgical History Medical Problems: Diabetes Arthritis Male genitourinary issues Gastrointestinal disorder Anxiety Reflux High Cholesterol Sleep Apnea Hypertension Kidney Disease Depression Family History Diabetes mellitus FH: heart disease Hypertension Social History Smoking Status: Never Smoker Smokeless Tobacco Use: No Alcohol Use: none Marital Status: Housing status: lives with family Occupational Status: retired Immunizations History of Influenza Vaccine: Yes History of Tetanus Vaccine?: Yes History of Pneumococcal: Yes History of Hepatitis B Vaccine: No Allergies Coded Allergies: Penicillins (Verified Allergy, Intermediate, HIVES, 07/31/15) Dust (Verified Allergy, Unknown, ., 07/31/15) Metoprolol (Verified Allergy, Unknown, GI SYMPTOMS, 08/19/15) POLLEN (Verified Allergy, Unknown, ., 07/31/15) Home Medications Scheduled Amlodipine (Norvasc), 10 MG PO QPM Cinnamon (Cinnamon), 500 MG PO BID Fish Oil (Berlin-3), 1 CAP PO DAILY Fluoxetine HCl (Fluoxetine HCl), 60 MG PO DAILY Fluticasone Propionate (Nasal) (Flonase Allergy Relief), 2 SPRAYS DEMETRIO DAILY Hydralazine Hcl (Apresoline), 25 MG PO BID Hydrochlorothiazide (Hctz), 25 MG PO QAM Lisinopril (Zestril), 40 MG PO QAM Lovastatin (Mevacor), 40 MG PO QAM Pantoprazole (Protonix), 40 MG PO DAILY Potassium Chloride Microencaps (Potassium Chloride Er), 40 MEQ PO DAILY Pumpkin Seed (Uriplex), 1 TAB PO DAILY Temazepam (Restoril), 30 MG PO HS Trazodone Hcl (Trazodone), 50-100 MG PO HS Turmeric (Curcuma Longa) (Turmeric), 1 CAP PO DAILY [Thyme], 1 TAB PO DAILY Scheduled PRN Benzonatate (Tessalon Perles), 1 CAP PO TID PRN for Cough Hydrocodone/Acetaminophen 10MG/325MG ([place] 10MG/325MG), 1 TAB PO Q6 PRN for Pain Physical Exam Vital Signs Date Time Temp Pulse Resp B/P (MAP) Pulse Ox O2 Delivery O2 Flow Rate FiO2 01/04/18 21:06 96 Room Air 01/04/18 20:36 80 16 01/04/18 20:31 147/94 01/04/18 20:25 78 01/04/18 20:06 65 13 167/104 01/04/18 20:06 72 20 167/104 Room Air 01/04/18 20:01 176/129 01/04/18 19:49 188/117 01/04/18 19:36 67 18 01/04/18 19:31 77 17 185/121 01/04/18 19:04 187/117 01/04/18 19:01 70 14 01/04/18 18:34 96 Room Air 01/04/18 18:12 156/102 01/04/18 18:04 36.4 91 18 202/120 96 Room Air General Appearance: WD/WN, no apparent distress Head: normocephalic, atraumatic Eyes: normal inspection, sclerae normal ENT: hearing grossly normal, pharynx normal, + pertinent finding (dry mucous membranes) Neck: supple, no JVD, no carotid bruits Respiratory/Chest: normal breath sounds, no respiratory distress, no accessory muscle use Cardiovascular: regular rate, rhythm, no murmur, normal peripheral pulses Abdomen/GI: normal bowel sounds, non tender, soft Extremities/Musculoskelatal: no calf tenderness, no pedal edema Neurologic/Psych: alert, normal reflexes, oriented x 3 Skin: normal color, warm/dry, no rash Diagnostics Laboratory Results Results Past 24 Hours Test 01/04/18 18:42 Range/Units White Blood Count 6.85 4.8-10.8 K/uL Red Blood Count 5.00 4.7-6.1 M/uL Hemoglobin 15.3 14.0-18.0 g/dL Hematocrit 42.9 42-52 % Mean Corpuscular Volume 85.8 80-100 fL Mean Corpuscular Hemoglobin 30.6 25-34 pg Mean Corpuscular Hemoglobin Concent 35.7 32-36 g/dl RDW Standard Deviation 40.7 36.4-46.3 fL RDW Coefficient of Variation 13.0 11.5-14.5 % Platelet Count 178 130-400 K/uL Mean Platelet Volume 9.4 7.4-10.4 fL Sodium Level 137 136-145 mmol/L Potassium Level 3.3 3.5-5.1 mmol/L Chloride Level 103 98-107 mmol/L Carbon Dioxide Level 26 21-32 mmol/L Anion Gap 8.0 3-11 mmol/L Blood Urea Nitrogen 17 7-18 mg/dl Creatinine 1.56 0.60-1.40 mg/dl Est Creatinine Clear Calc Drug Dose 54.8 ml/min Estimated GFR () 52.9 Estimated GFR (Non- 45.6 BUN/Creatinine Ratio 11.2 10-20 Random Glucose 160 70-99 mg/dl Calcium Level 9.0 8.5-10.1 mg/dl Total Bilirubin 0.6 0.2-1 mg/dl Aspartate Amino Transf (AST/SGOT) 14 15-37 U/L Alanine Aminotransferase (ALT/SGPT) 25 12-78 U/L Alkaline Phosphatase 66 45-117 U/L Troponin I < 0.015 0-0.045 ng/ml Total Protein 7.2 6.4-8.2 gm/dl Albumin 3.8 3.4-5.0 gm/dl Globulin 3.4 2.5-4.0 gm/dl Albumin/Globulin Ratio 1.1 0.9-2 Thyroid Stimulating Hormone (TSH) 0.923 0.300-4.500 uIu/ml Diagnostic Radiology CHEST ONE VIEW PORTABLE HISTORY: 67 years-old Male sob acute shortness of breath COMPARISON: Chest radiograph 06/10/2017, CT chest 10/18/2017 TECHNIQUE: Portable AP view of the chest FINDINGS: Cardiomediastinal and hilar silhouettes are within normal limits. There is no pneumothorax, pleural effusion, focal airspace consolidation or overt pulmonary edema. Degenerative changes are seen about the bilateral shoulders and spine. IMPRESSION: No acute process. Impression Assessment and Plan 67 yo M with pMHx HTN, HLD, DM, CKD, GERD presents with 1 week history of progressively worsening blood pressure despite compliance with multiple antihypertensive medications, HTN - Continued home dose lisinopril 40mg daily - Increased hydralazine to 25mg TID instead of BID - Held amlodipine 10mg HS due to complaints of leg swelling - Discontinued HCTz due to hypokalemia despite supplementation - Add additional coverage for BP as needed Chest pain - Serial troponin - Echo ordered - EKG prn CP Hypokalemia - 3.3 on admission - Possibly attributed to CP symptoms - Continue supplementation with KCl, trend BMP - If BP well controlled without HCTz, would consider discontinuing indefinitely DM II - Now diet controlled at home. Was able to discontinue insulin once commenced cinnamon - HbA1c ordered - No additional coverage ordered at this time CKD - Creatinine 1.56, at baseline - Trend BMP HLD - Patient not on any statin - Review of outside records reveal fasting lipid panel is WNL in 11/2017 Sleep apnea - CPAP ordered GERD - Continue pantoprazole Depression - Continue fluoxetine, trazodone, temazepam Chronic back pain and arthritis - Continue home [place] VTE ppx - Hep SC FULL CODE Attending addendum: I have physically seen this patient, have supervised the medical residents activities, and agree with the H&P unless as otherwise noted. Assessment and Plan: Precordial chest pain/hypertension-- The patient will be admitted to telemetry for serial cardiac enzymes, serial EKG's, cardiac rhythm monitoring and a 2-D echocardiogram with Dopplers. Continue lisinopril. Increase hydralazine as noted Hold HCTZ for hypokalemia. Hold amlodipine. Continue other meds as noted above. Advanced Directives Existing Advance Directive: No Existing Living Will: No Existing Power of Technical Specialist [employer]etics: No Existing Health Care Proxy: Yes () Resuscitation Status Full code VTE Prophylaxis Will order VTE Prophylaxis: Yes Resident Tracking Resident Involvement: Resident Care Provided Care Provided: Adult Hospital Medicine
[2018-01-04] MEDS ORDERED: POTASSIUM CHLORIDE 10 MEQ TABCR PO STA (22:36)
[2018-01-04] MEDS ORDERED: ONDANSETRON INJ 2 MG/ML 2 ML VIAL IV PRN (22:45)
[2018-01-04] MEDS ORDERED: ACETAMINOPHEN 325 MG TAB PO PRN (22:45)
[2018-01-04] MEDS ORDERED: NITROGLYCERIN 0.4 MG SL PER TAB CHARGE SL PRN (22:45)
[2018-01-04] MEDS ORDERED: POLYETHYLENE (MIRALAX) 17 GM PACK PO PRN (22:45)
[2018-01-04] MEDS ORDERED: MAGNESIUM HYDROXIDE SUSP 30 ML UDC PO PRN (22:45)
[2018-01-04] MEDS ORDERED: HYDROCODONE/ACETAMI 10/325 TAB PO PRN (22:45)
[2018-01-04] MEDS ORDERED: ALUMINUM/MAGNESIUM/SIMETH (MAALOX MAX) 30 ML UDC PO PRN (22:45)
[2018-01-04] MEDS ORDERED: MoRPHine SULFATE 2 MG/ML CARP IV PRN (22:45)
[2018-01-04] MEDS ORDERED: IV FLUIDS COMPLETED PRN (23:30)
[2018-01-04 23:54] VITALS: O2SAT 98
[2018-01-05 00:19] VITALS: BP 144/83; PULSE 55; TEMP 36.4; O2SAT 96
[2018-01-05 04:23] VITALS: BP 134/79; PULSE 58; TEMP 36.3; O2SAT 94
[2018-01-05 06:49] LABS: HEMOGLOBIN A1C 6.5 % (4.5-5.6)
[2018-01-05 06:57] LABS: HEMATOCRIT 42.2 % (42-52); HEMOGLOBIN 14.5 g/dL (14.0-18.0); MEAN CELL VOLUME 86.7 fL (80-100); MEAN CORPUSCULAR HEMOGLOBIN 29.8 pg (25-34); MEAN CORPUSCULAR HGB CONC 34.4 g/dl (32-36); MEAN PLATELET VOLUME 9.6 fL (7.4-10.4); PLATELET COUNT 185 K/uL (130-400); RED CELL DISTRIBUTION WIDTH CV 13.1 % (11.5-14.5); RED CELL DISTRIBUTION WIDTH SD 41.9 fL (36.4-46.3); WHITE BLOOD COUNT 8.14 K/uL (4.8-10.8)
[2018-01-05 07:11] VITALS: BP 164/93; PULSE 60; TEMP 36.5; O2SAT 94
[2018-01-05 07:30] LABS: CALCIUM 8.7 mg/dl (8.5-10.1); CREATININE 1.56 mg/dl (0.60-1.40); POTASSIUM 3.4 mmol/L (3.5-5.1)
[2018-01-05] MEDS ORDERED: PANTOprazole SOD 40 MG TAB PO SCH (09:00)
[2018-01-05] MEDS ORDERED: HEPARIN SOD 5000 UNIT/0.5 ML CARP SQ SCH (09:00)
[2018-01-05] MEDS ORDERED: FLUTICASONE PROPIONATE NA SPR 16 GM BTL NAE SCH (09:00)
[2018-01-05] MEDS ORDERED: LISINOPRIL 40 MG TAB PO SCH (09:00)
[2018-01-05] MEDS ORDERED: OMEGA-3 (PURIFIED FISH OIL) 1 GM CAP PO SCH (09:00)
[2018-01-05] MEDS ORDERED: FLUOXETINE HCL 20 MG CAP PO SCH (09:00)
[2018-01-05] MEDS ORDERED: POTASSIUM CHLORIDE 20 MEQ TABCR PO SCH (09:00)
[2018-01-05 11:00] VITALS: BP 156/88; PULSE 72; TEMP 36.7; O2SAT 95
--- NOTE | 2018-01-05 11:07 | ECHOCARDIOGRAM REPORT ---
*NOTICE TO RECEIVING CONSTITUTION PARTY AGENCY This information is strictly Confidential and protected under [place] law. [place] law prohibits you from making any further disclosure of this information unless further disclosure is expressly permitted by the written consent of the person to whom it pertains or is authorized by law. A general authorization for the release of medical or other information is not sufficient for this purpose. Hospital accepts no responsibility if the information is made available to any other person, INCLUDING THE PATIENT. Interpretation Summary * Name: SUZI SANTAMARIA Study Date: 01/05/2018 06:59 AM BP: 134/79 mmHg * Patient Location: [facility]\S\[id number]\S\1 HR: 71 * : 1950 (M/d/yyyy) Gender: Male Height: 70 in * Age: 67 yrs Ethnicity: [place] Weight: 217 lb * Ordering Physician: Sushma Vogel. * Referring Physician: Self, Referred * Performed By: Beatriz Stoddard RCS * * Reason For Study: Chest Pain * BSA: 2.2 m2 * -- Conclusions -- * 1. Normal left ventricular size and systolic function. EF 60-65%. No regional wall motion abnormalities. Moderate concentric left ventricular hypertrophy. Type 1 diastolic dysfunction. * 2. The left atrium is mildly dilated. * 3. There is mild mitral regurgitation. * 4. Small pericardial effusion without echocardiographic evidence of tamponade physiology. * 5. Normal estimated right ventricular systolic pressure. * 6. No prior study available for comparison. Procedure Details * A complete two-dimensional transthoracic echocardiogram was performed (2D, M-mode, Doppler and color flow Doppler). Left Ventricle * Normal left ventricular size and systolic function. EF 60-65%. No regional wall motion abnormalities. Moderate concentric left ventricular hypertrophy. Type 1 diastolic dysfunction. Right Ventricle * The right ventricle is normal in size and function. * The right ventricular systolic function is normal as assessed by tricuspid annular plane systolic excursion (TAPSE) (normal >1.5 cm). Atria * The left atrium is mildly dilated. * Right atrial size is normal. * No visualized ASD. Mitral Valve * The mitral valve is grossly normal. * There is no mitral valve stenosis. * There is mild mitral regurgitation. Tricuspid Valve * The tricuspid valve is not well visualized, but is grossly normal. * There is no tricuspid stenosis. * There is trace tricuspid regurgitation. Aortic Valve * The aortic valve is trileaflet. * No hemodynamically significant valvular aortic stenosis. * No aortic regurgitation is present. Pulmonic Valve * The pulmonic valve is not well seen, but is grossly normal. * There is no pulmonic valvular stenosis. * Trace pulmonic valvular regurgitation. Great Vessels * The aortic root is normal size. * Ascending aorta of normal dimension * Aortic arch of normal dimension. * Normal pulmonary venous flow pattern. Pericardium/Pleural * Small pericardial effusion without echocardiographic evidence of tamponade physiology. Great Vessels * Normal inferior vena cava size and collapsability with sniff indicates a normal right atrial pressure of 3 mmHg MMode 2D Measurements and Calculations IVSd 1.4 cm IVSs 1.7 cm LVIDd 4.9 cm LVIDs 3.2 cm LVPWd 1.4 cm LVPWs 1.6 cm IVS/LVPW 0.99 FS 33.9 % EDV(Teich) 112.2 ml ESV(Teich) 41.9 ml EF(Teich) 62.6 % EDV(cubed) 116.9 ml ESV(cubed) 33.7 ml EF(cubed) 71.1 % % IVS thick 20.2 % % LVPW thick 12.2 % LV mass(C)d 277.4 grams LV mass(C)dI 128.4 grams/m\S\2 LV mass(C)s 195.9 grams LV mass(C)sI 90.7 grams/m\S\2 SV(Teich) 70.3 ml SI(Teich) 32.5 ml/m\S\2 SV(cubed) 83.1 ml SI(cubed) 38.5 ml/m\S\2 Ao root diam 3.5 cm Ao root area 9.4 cm\S\2 ACS 1.5 cm LA dimension 5.8 cm asc Aorta Diam 3.1 cm LA/Ao 1.7 Doppler Measurements and Calculations MV E max claire 80.9 cm/sec MV A max claire 101.9 cm/sec MV E/A 0.79 MV P1/2t max claire 91.7 cm/sec MV P1/2t 65.3 msec MVA(P1/2t) 3.4 cm\S\2 MV dec slope 411.4 cm/sec\S\2 MV dec time 0.28 sec Ao V2 max 142.4 cm/sec Ao max PG 8.1 mmHg Ao max PG (full) 3.2 mmHg LV V1 max PG 4.9 mmHg LV V1 max 110.3 cm/sec PA V2 max 101.8 cm/sec PA max PG 4.2 mmHg TR max claire 212.5 cm/sec RVSP(TR) 21.1 mmHg RAP systole 3.0 mmHg
[2018-01-05] MEDS ORDERED: POTASSIUM CHLORIDE 10 MEQ TABCR PO STA (12:05)
--- NOTE | 2018-01-05 12:34 | Discharge Instructions ---
Discharge Instructions Date of Service Jan 05, 2018. Admission Reason for Admission: Htn, Precordial Chest Pain Discharge Discharge Diagnosis / Problem: elevated blood pressure Discharge Goals Goal(s): Diagnostic testing Activity Recommendations Activity Limitations: resume your previous activity . Instructions / Follow-Up Instructions / Follow-Up a) elevated blood pressure -this appears to have been multifactorial - we actually saw your blood pressure go down mostly with time -- they gave you a little additional hydralazine in the ER, but that medication (especially IV) wears off in ~4-6 hours so the better pressures we're seeing now are actually on less medication that you're normally on at home. since you noted that you take your meds regularly and don' t miss dosing, the most likely factors involved would be stress -- stress will fire up your fight or flight nervous system, which then raises blood pressure. as we discussed, then sometimes seeing an elevated blood pressure and generally not feeling good can be the cause of firing up your fight or flight nervous system further, making your pressure even higher. -for now, we'll keep your home medications the same - continue to follow your blood pressures at home and then we'll work on setting up follow up with Dr Peter next week -on review of old records, a few rare things should be ruled out just because your blood pressures have been difficult to control. we've sent some labs -- renin and aldosterone levels - to screen for inappropriately high levels of hormones your kidneys make that raise pressures. in addition to that, we'll want you to get a renal ultrasound WITH doppler (your previous ones have been to follow that cyst on your kidney but don't have the doppler to check blood flow) - we'll want to check this because when someone has a tighter blood vessel going to the kidney it can cause the kidney to raise blood pressure in response. our nurse navigator will be working on getting this set up b) chest pain -your cardiac enzymes (troponin) were negative on multiple sets. troponin is a lab test that is VERY sensitive to stress/strain/damage to the heart wall (we get a lot of false positive troponins, almost never false negatives) -- and almost "by rule" if someone is having chest pain that does relate to their heart for more than 20 minutes, a troponin elevation will result. since your troponin labs were negative, and the pain was going on for months, it's almost entirely certain that the pain was not related to your heart on this basis alone. -your echocardiogram looks simply like a heart that has been pushing against high blood pressure for a while, not a heart that's been damaged by bad blood flow, so that adds credence to the chest pain not being cardiac -the location of your pain and the way it feels is far more consistent with rib pain - and on top of that, your ribs in that area don't move as well as they should when you exhale making it very likely that the pain is, in fact, rib related. have your chiropractor work on the ribs to try to get them moving better -- if that's not helping in alleviating the pain ask Dr Peter to refer you to Reynaldo Dumont DO ([facility] - who does a lot of osteopathic manipulative treatments) to work on the ribs further -for completeness we'll have our navigator get you set up with a stress test for (hopefully next week) the near future - but this is more in line with further evaluation of your cardiac status due to your longstanding high blood pressure and prior history than anything really directly in line with your current set of symptoms. we'll be asking them to do a chemical stress since you 're pretty sure you couldn't do well on a treadmill Current Hospital Diet Patient's current hospital diet: AHA Diet (Heart Healthy) Discharge Diet Recommended Diet: AHA Diet (Heart Healthy) Pending Studies Studies pending at discharge: no Laboratory Results Hemoglobin A1c Test 01/04/18 18:42 Range/Units Estimated Average Glucose 140 mg/dl Hemoglobin A1c 6.5 H 4.5-5.6 % Lipid Panel Test 12/05/17 10:28 Range/Units Triglycerides Level 149 0-150 mg/dl Cholesterol Level 169 0-200 mg/dl HDL Cholesterol 48 mg/dl Cholesterol/HDL Ratio 3.5 LDL Cholesterol, Calculated 91 mg/dl Medical Emergencies . Who to Call and When: Medical Emergencies: If at any time you feel your situation is an emergency, please call 911 immediately. . Non-Emergent Contact Non-Emergency issues call your: Primary Care Provider, Curriculum Designer . . "Provider Documentation" section prepared by Handy Graham. .
[2018-01-05 12:42] VITALS: BP 156/88; PULSE 72; TEMP 36.7; O2SAT 95
--- NOTE | 2018-01-05 17:29 | Discharge Summary ---
Discharge Summary Date of Service Jan 05, 2018. Discharge Summary Admission Date: Jan 04, 2018 at 23:04 Discharge Date: Jan 05, 2018 Discharge Disposition: Home Principal Diagnosis: uncontrolled HTN, see below otherwise Immunizations: Have You Had Influenza Vaccine: Yes History of Tetanus Vaccine?: Yes History of Pneumococcal: Yes History of Hepatitis B Vaccine: No Procedures: echo: Interpretation Summary * Name: SUZI SANTAMARIA Study Date: 01/05/2018 06:59 AM BP: 134/79 mmHg * Patient Location: [facility]\S\[facility]\S\1 HR: 71 * : 1950 (M/d/yyyy) Gender: Male Height: 70 in * Age: 67 yrs Ethnicity: [place] Weight: 217 lb * Ordering Physician: Sushma Vogel. * Referring Physician: Self, Referred * Performed By: Beatriz Stoddard RCS * * Reason For Study: Chest Pain * BSA: 2.2 m2 * -- Conclusions -- * 1. Normal left ventricular size and systolic function. EF 60-65%. No regional wall motion abnormalities. Moderate concentric left ventricular hypertrophy. Type 1 diastolic dysfunction. * 2. The left atrium is mildly dilated. * 3. There is mild mitral regurgitation. * 4. Small pericardial effusion without echocardiographic evidence of tamponade physiology. * 5. Normal estimated right ventricular systolic pressure. * 6. No prior study available for comparison. Procedure Details * A complete two-dimensional transthoracic echocardiogram was performed (2D, M-mode, Doppler and color flow Doppler). Left Ventricle * Normal left ventricular size and systolic function. EF 60-65%. No regional wall motion abnormalities. Moderate concentric left ventricular hypertrophy. Type 1 diastolic dysfunction. Right Ventricle * The right ventricle is normal in size and function. * The right ventricular systolic function is normal as assessed by tricuspid annular plane systolic excursion (TAPSE) (normal >1.5 cm). Atria * The left atrium is mildly dilated. * Right atrial size is normal. * No visualized ASD. Mitral Valve * The mitral valve is grossly normal. * There is no mitral valve stenosis. * There is mild mitral regurgitation. Tricuspid Valve * The tricuspid valve is not well visualized, but is grossly normal. * There is no tricuspid stenosis. * There is trace tricuspid regurgitation. Aortic Valve * The aortic valve is trileaflet. * No hemodynamically significant valvular aortic stenosis. * No aortic regurgitation is present. Pulmonic Valve * The pulmonic valve is not well seen, but is grossly normal. * There is no pulmonic valvular stenosis. * Trace pulmonic valvular regurgitation. Great Vessels * The aortic root is normal size. * Ascending aorta of normal dimension * Aortic arch of normal dimension. * Normal pulmonary venous flow pattern. Pericardium/Pleural * Small pericardial effusion without echocardiographic evidence of tamponade physiology. Great Vessels * Normal inferior vena cava size and collapsability with sniff indicates a normal right atrial pressure of 3 mmHg CHEST ONE VIEW PORTABLE HISTORY: 67 years-old Male sob acute shortness of breath COMPARISON: Chest radiograph 06/10/2017, CT chest 10/18/2017 TECHNIQUE: Portable AP view of the chest FINDINGS: Cardiomediastinal and hilar silhouettes are within normal limits. There is no pneumothorax, pleural effusion, focal airspace consolidation or overt pulmonary edema. Degenerative changes are seen about the bilateral shoulders and spine. IMPRESSION: No acute process. The above report was generated using voice recognition software. It may contain grammatical, syntax or spelling errors. Electronically signed by: Homer Whyte M.D. 01/04/2018 7:01 PM Dictated Date/Time: 01/04/2018 7:00 PM Last Resulted CBC 01/05/18 06:46 Last Resulted BMP 01/05/18 06:46 Item Value Date Time Troponin I < 0.015 ng/ml 01/05/18 0047 Troponin I < 0.015 ng/ml 01/05/18 0646 Troponin I < 0.015 ng/ml 01/05/18 1236 Thyroid Stimulating Hormone (TSH) 0.923 uIu/ml 01/04/18 1842 Medication Reconciliation Continued Medications: Amlodipine (Norvasc) 10 Mg Tab 10 MG PO QPM Benzonatate (Tessalon Perles) 100 Mg Cap 1 CAP PO TID PRN for Cough for 10 Days, #30 CAP Cinnamon (Cinnamon) 500 Mg Cap 500 MG PO BID Fish Oil (Brunswick-3) 1 Ea Cap 1 CAP PO DAILY, CAP Fluoxetine HCl (Fluoxetine HCl) 20 Mg Cap 60 MG PO DAILY TAKES 3 TABS Fluticasone Propionate (Nasal) (Flonase Allergy Relief) 50 Mcg/Act Spr 2 SPRAYS DEMETRIO DAILY Hydralazine Hcl (Apresoline) 25 Mg Tab 25 MG PO BID, TAB Hydrochlorothiazide (Hctz) 25 Mg Tab 25 MG PO QAM, TAB Hydrocodone/Acetaminophen 10MG/325MG ([place] 10MG/325MG) Tab 1 TAB PO Q6 PRN for Pain, TAB PRN PAIN Lisinopril (Zestril) 40 Mg Tab 40 MG PO QAM Lovastatin (Mevacor) 40 Mg Tab 40 MG PO QAM Pantoprazole (Protonix) 40 Mg Tab 40 MG PO DAILY, #30 TAB Potassium Chloride Microencaps (Potassium Chloride Er) 20 Meq Tab 40 MEQ PO DAILY TAKES 2 TABS Pumpkin Seed (Uriplex) Unknown Strength Tab 1 TAB PO DAILY Temazepam (Restoril) 30 Mg Cap 30 MG PO HS, CAP Trazodone Hcl (Trazodone) 50 Mg Tab 50-100 MG PO HS, TAB Turmeric (Curcuma Longa) (Turmeric) Unknown Strength Cap 1 CAP PO DAILY [Thyme] () 1 TAB PO DAILY Discharge Exam Physical Exam: General Appearance: no apparent distress Eyes: EOMI ENT: hearing grossly normal Neck: trachea midline Respiratory/Chest: no respiratory distress, no accessory muscle use, + pertinent finding (L sided ribs 8-10 decreased ROM stuck more in inhalation phase of respiratory cycle - respiratory assist and direct - improved ROM) Extremities: normal inspection 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 appearing uncontrolled hypertension, muscular/ rib chest pain chest pain -ongoing for months -left lower ribs as area of pain, rib motion stuck in inhalation fits with cause of pain -cardiac enzymes negative, non-ischemic enzymes/echo all very reassuring ( especially with the long duration of pain) ----stress test as outpt for completeness, but more due to his age/HTN/stated prior cardiac hx than his acute presentation -outpt chiropractic and/or DO for manipulative medicine for rib (also consider voltaren gel) uncontrolled HTN -actually improved with less meds than he normally takes at home (had hydralazine and nitropaste in ER last night, then lisinopril and hydralazine only at home dosing this AM, with BP improving to mostly stage 1 HTN ranges) -?adherence, ?stress induced (was worried about chest pain, checked pressure , then worried about pressure and rechecked and so on) -stable for ongoing outpt management -renin, aldosterone levels checked here - results pending -check renal artery ultrasound as outpt for completeness -continue outpatient med regimen for now ribcage somatic dysfunction -OMT as above -outpt chiropractic or ongoing OMT Total Time Spent: Greater than 30 minutes This includes examination of the patient, discharge planning, medication reconciliation, and communication with other providers. Discharge Instructions Please refer to the electronic Patient Visit Report (Discharge Instructions) for additional information. Follow-Up PCP next week, otherwise as above Additional Copies To Daniel Peter M.D.
[2018-01-05] MEDS ORDERED: AMLODIPINE BESYLATE 5 MG TAB PO SCH (21:00)
[2018-01-05] MEDS ORDERED: TEMAZEPAM 15 MG CAP PO SCH (21:00)
[2018-01-05] MEDS ORDERED: TRAZODONE HCL 50 MG TAB PO SCH (21:00)
== END 2018-01-05 14:17 | disposition home or self-care (01) ==
LOC: C.EDB 18:03 → C.MED 23:04 → ENRESERV 23:28
PROVIDERS: ADMIT Hospitalist; ATTEND Family Medicine
DX: I16.0 Hypertensive urgency (principal); I12.9 Hypertensive chronic kidney disease with stage 1 through stage 4 chronic kidney disease, or unspecified chronic kidney disease; N18.9 Chronic kidney disease, unspecified; R07.2 Precordial pain; E87.6 Hypokalemia; E78.5 Hyperlipidemia, unspecified; E11.9 Type 2 diabetes mellitus without complications; M19.90 Unspecified osteoarthritis, unspecified site; K21.9 Gastro-esophageal reflux disease without esophagitis; E78.00 Pure hypercholesterolemia, unspecified; G47.30 Sleep apnea, unspecified; F32.9 Major depressive disorder, single episode, unspecified; Z88.0 Allergy status to penicillin; Z83.3 Family history of diabetes mellitus; Z82.49 Family history of ischemic heart disease and other diseases of the circulatory system

== ENCOUNTER → 2018-01-12 | Outpatient (CLI) | payer OTHER, MEDICARE ==
[~2018-01-12] MED LIST changes: +BENZ100C84 PO; +CINN1CAP2 PO; -COEN1CAP17 PO; +FLUO20CA36 PO; -FLUT0.0529 NAE; +FLUT0.15 NAE; +HYDR-4079 PO; -INSUINJ14 SC; -INSUINJ4 SQ; -METO100T44 PO; -MULT-190 PO; +OMEG10007 PO; -OMEP40CA PO; -OXYC-106 PO; +PANT40TA PO; -POTA-335 PO; +POTA20TA13 PO; -SERT-234 PO; +TURM1CAP2 PO; +[UNRECOGNIZED DRUG - CODE] PO; +[UNRECOGNIZED DRUG - OTHER] PO
== END | disposition home or self-care (01) ==
LOC: C.LABPBG 11:42
PROVIDERS: ATTEND Internal Medicine
DX: I10 Essential (primary) hypertension (principal)

== ENCOUNTER → 2018-02-21 | Outpatient (CLI) | payer OTHER, MEDICARE ==
[2018-02-21 14:49] LABS: BLOOD UREA NITROGEN 20 mg/dl (7-18); CALCIUM 8.8 mg/dl (8.5-10.1); CARBON DIOXIDE 29 mmol/L (21-32); GLUCOSE 155 mg/dl (70-99); POTASSIUM 3.4 mmol/L (3.5-5.1); SODIUM 139 mmol/L (136-145)
== END | disposition home or self-care (01) ==
LOC: C.LABBC 09:11
PROVIDERS: ATTEND Physician Assistant
DX: N18.3 Chronic kidney disease, stage 3 (moderate) (principal)

== ENCOUNTER → 2018-05-10 | Outpatient (CLI) | payer OTHER, MEDICARE ==
[~2018-05-10] MED LIST changes: -AMLO-114 PO; +AMLO10TA3 PO
--- NOTE | 2018-05-10 15:48 | DIAGNOSTIC IMAGING REPORT ---
MRI THE RIGHT SHOULDER NO CONTRAST CLINICAL HISTORY: Right shoulder pain COMPARISON STUDY: Conventional radiographic study dated 05/03/2018 FINDINGS: Imaging was performed in the axial, sagittal, and coronal planes. The bicipital tendon appears intact. There are mild arthritic changes present within the glenohumeral joint with cartilaginous thinning. Degenerative changes are present within the AC joint. There degenerative irregularity of the glenoid labrum, likely age-related. There is no evidence for full-thickness rotator cuff tear. There is mild thickening of the distal supraspinatus tendon consistent with a mild tendinopathy. There is a 2.5 cm subcoracoid ganglion cyst. IMPRESSION: 1. 2.5 cm subcoracoid ganglion cyst 2. Rotator cuff tendinopathy but no evidence for full-thickness tear 3. Degenerative changes within the AC joint and glenohumeral joint 4. Degenerative irregularity of the glenoid labrum, likely age-related Electronically signed by: Juan Manuel Oconnell M.D. 05/10/2018 3:46 PM Dictated Date/Time: 05/10/2018 3:38 PM
== END | disposition home or self-care (01) ==
LOC: C.MRIBC 14:13
PROVIDERS: ATTEND Orthopaedic Surgery
DX: M25.511 Pain in right shoulder (principal)

== ENCOUNTER → 2018-05-11 | Outpatient (CLI) | payer OTHER, MEDICARE ==
[~2018-05-11] VITALS: Ht 175.3 cm; Wt 92.5 kg
[2018-05-11 13:23] VITALS: BP 149/97; PULSE 67; Ht 175.3 cm; Wt 92.5 kg
== END | disposition home or self-care (01) ==
LOC: C.NEUR 12:40
PROVIDERS: ATTEND Physician Assistant
DX: G47.33 Obstructive sleep apnea (adult) (pediatric) (principal)

== ENCOUNTER → 2018-05-26 | Outpatient (CLI) | payer OTHER, MEDICARE ==
[~2018-05-26] MED LIST changes: -BENZ100C84 PO; +KETO10TA PO
[2018-05-26 15:39] LABS: BASO % 0.4 %; BASO ABS # 0.04 K/uL (0-0.2); EOS % 5.8 %; EOS ABS # 0.52 K/uL (0-0.5); HEMOGLOBIN 15.4 g/dL (14.0-18.0); IG# 0.02 K/uL (0.00-0.02); LYMPH % 18.4 %; LYMPH ABS # 1.65 K/uL (1.2-3.4); MEAN CELL VOLUME 87.6 fL (80-100); MEAN CORPUSCULAR HEMOGLOBIN 31.4 pg (25-34); MEAN CORPUSCULAR HGB CONC 35.8 g/dl (32-36); MONO % 8.6 %; MONO ABS # 0.77 K/uL (0.11-0.59); NEUT % 66.6 %; NEUT ABS # 5.95 K/uL (1.4-6.5); PLATELET COUNT 198 K/uL (130-400); RED CELL DISTRIBUTION WIDTH CV 13.2 % (11.5-14.5); RED CELL DISTRIBUTION WIDTH SD 42.2 fL (36.4-46.3); WHITE BLOOD COUNT 8.95 K/uL (4.8-10.8)
[2018-05-26 16:07] LABS: BLOOD UREA NITROGEN 20 mg/dl (7-18); CALCIUM 8.6 mg/dl (8.5-10.1); CARBON DIOXIDE 24 mmol/L (21-32); CREATININE 1.56 mg/dl (0.60-1.40); GLUCOSE 175 mg/dl (70-99); POTASSIUM 3.6 mmol/L (3.5-5.1); SODIUM 136 mmol/L (136-145)
== END | disposition home or self-care (01) ==
LOC: C.CPL 14:18
PROVIDERS: ATTEND Orthopaedic Surgery
DX: Z01.810 Encounter for preprocedural cardiovascular examination (principal); Z01.812 Encounter for preprocedural laboratory examination; M75.120 Complete rotator cuff tear or rupture of unspecified shoulder, not specified as traumatic

== ENCOUNTER → 2018-06-01 | Day surgery (SDC) | payer OTHER, MEDICARE ==
[2018-05-25 16:42] VITALS: Ht 175.3 cm; Wt 93.2 kg
[~2018-06-01] VITALS: Ht 175.3 cm; Wt 93.2 kg
[~2018-06-01] MED LIST changes: +ATROPINE SULFATE 0.1 MG/ML 5ML SYR IV PRN; +BUPIVACAINE 0.25% 30 ML VIAL ONE; +CEFAZOLIN 2000MG IV PUSH 15 ML IV SCH; +DEXAMETHASONE SOD INJ 4 MG/ML VIAL ONE; +EpHEDrine SULFATE 50MG/5ML SYR ONE; +EpHEDrine SULFATE INJ 50 MG/ML AMP IV PRN; +EpINEphrine INJ 1MG/ML AMP 1 MG/ML AMP ONE; +FENTANYL CITRATE INJ 50 MCG/1 ML 2 ML VIAL ONE; +HYDROmorphone INJ 0.5 MG/0.5 ML SYR IV PRN; +KETOROLAC TROMETHAMINE 30 MG/ML VIAL IV. PRN; +LACTATED RINGER'S 1000ML 1,000 ML IV SCH; +LIDOCAINE HCL 2% 2 ML VIAL (20MG/ML) ONE; +MIDAZOLAM HCL 1 MG/ML 2ML VIAL ONE; +ONDANSETRON INJ 2 MG/ML 2 ML VIAL IV PRN; +ONDANSETRON INJ 2 MG/ML 2 ML VIAL ONE; +PROPOFOL IV EMULSION 10 MG/ML 20 ML VIAL ONE; +ROPIVACAINE 0.5% 5 MG/ML 30 ML VIAL ONE; +SODIUM CHLORIDE 0.9% 1000ML 1,000 ML IV SCH
--- NOTE | 2018-06-01 08:01 | History & Physical Bridge Note ---
H&P Re-Evaluation Bridge Note: I have examined the patient, reviewed the History & Physical and in the interval since the performance of the History & Physical I have noted the following changes of clinical significance: No changes noted
--- NOTE | 2018-06-01 10:04 | [facility] Post Operative Brief Note ---
Immediate Operative Summary Operative Date Jun 01, 2018. Pre-Operative Diagnosis RIGHT SHOULDER PARALABRAL CYST, PAIN Post-Operative Diagnosis SAME PREOP Procedure(s) Performed Right Shoulder Arthroscopy With Paralabral Cyst Decompression Surgeon DR. Kwasi OCASIO Ladder Operator Surgeon(s) SKYLAR MCKENZIE PA-C Estimated Blood Loss 5 ML Findings Consistent with Post-Op Diagnosis Specimens NONE Drains None Anesthesia Type General Regional
--- NOTE | 2018-06-01 10:16 | Discharge Instructions-SurgCtr ---
Discharge Instructions Date of Service Jun 01, 2018. Visit Reason for Visit: Right Shoulder Paralabral Cyst, Pain Discharge Discharge Diagnosis / Problem: SAME ABOVE Discharge Goals Goal(s): Decrease discomfort, Improve function Medications Stopped Medications Name(s): see med rec. Activity Recommendations Activity Limitations: as noted below Lifting Limitations: gradually increase as tolerated Exercise/Sports Limitations: gradually increase as tolerated Anesthesia . Post Anesthesia Instructions: If you have had General Anesthesia or IV Sedation: * Do not drive today. * Resume driving when surgeon permits. * Do not make important decisions or sign legal documents today. * Call surgeon for: 1. Temperature elevations greater than 101 degrees F. 2. Uncontrollable pain. 3. Excessive bleeding. 4. Persistent nausea and vomiting. 5. Medication intolerance (nausea, vomiting or rash). * For nausea and vomiting use only clear liquids such as: tea, soda, bouillon until nausea subsides, then gradually increase diet as tolerated. * If you have any concerns or questions, call your surgeon's office. If physician is unavailable and it is an emergency, call 911 or go to the nearest emergency room. . Instructions / Follow-Up Instructions / Follow-Up MEDICATIONS: * Resume previous medications unless instructed otherwise by your surgeon. * Always take pain medication on a full stomach or with food to avoid upset stomach. * Do not drink alcohol or drive while taking narcotics. * Ibuprofen or Tylenol may be taken if narcotic not needed. SPECIAL CARE INSTRUCTIONS: __ None _X_ Keep extremity elevated and iced x 48 hours; apply ice 20-30 minutes 8-10 times/day. May remove at night. _X_ Sling (WEAR FOR COMFORT ONLY) __24 hrs/day __ Remove at night __ Shoulder Immobilizer __ 24 hrs/day __ Remove at night _X_ Dressing __ Maintain until seen in office, may shower with plastic over site _X_ Remove dressings in 24-48 hours and then may shower _X_ Cover incisions with band-aids after showering __ Do not remove steri-strips Call physician if chills or temperature rises above 102 degrees or pain unrelieved by prescribed pain medications at . . Diet Recommendations Home Diet: no limitations Fluid Restriction: None Procedures Procedures Performed: Right Shoulder Arthroscopy With Paralabral Cyst Decompression Pending Studies Studies pending at discharge: no Work Instructions Return To Work: after follow-up Medical Emergencies . Who to Call and When: Medical Emergencies: If at any time you feel your situation is an emergency, please call 911 immediately. . Non-Emergent Contact Non-Emergency issues call your: Surgeon Call Non-Emergent contact if: your pain is not controlled, wound has increased drainage, wound has increased redness . . "Provider Documentation" section prepared by Alex Juarez. .
[2018-06-01 11:10] VITALS: TEMP 36.7
--- NOTE | 2018-06-01 11:14 | Anesthesia Progress Nt - [facility] ---
Anesthesia Post Op Note Date & Time Jun 01, 2018 at 11:14 Vital Signs Pain Intensity: 0 Vital Signs Past 12 Hours Date Time Temp Pulse Resp B/P (MAP) Pulse Ox O2 Delivery O2 Flow Rate FiO2 06/01/18 11:10 36.7 67 18 133/87 (102) 93 Room Air 06/01/18 10:56 132/89 06/01/18 10:55 65 14 06/01/18 10:55 66 14 92 06/01/18 10:54 36.3 67 20 132/89 94 Room Air 06/01/18 10:51 135/90 06/01/18 10:50 66 18 06/01/18 10:50 67 18 97 06/01/18 10:46 136/88 06/01/18 10:45 69 17 06/01/18 10:45 69 17 93 06/01/18 10:41 137/89 06/01/18 10:40 73 22 06/01/18 10:40 73 22 93 06/01/18 10:36 122/83 06/01/18 10:35 64 17 98 06/01/18 10:35 64 17 18 10:31 121/83 06/01/18 10:30 67 14 06/01/18 10:30 67 14 136/87 90 06/01/18 10:26 136/87 06/01/18 10:25 67 17 96 06/01/18 10:25 64 17 06/01/18 10:21 134/84 06/01/18 10:20 64 15 96 06/01/18 10:20 64 15 06/01/18 10:17 147/84 06/01/18 10:16 36.2 76 14 147/84 96 Mask 6 06/01/18 10:15 78 90 06/01/18 10:15 78 06/01/18 09:20 0 06/01/18 09:19 11 06/01/18 09:14 59 27 99 06/01/18 09:14 60 06/01/18 09:09 50 0 98 06/01/18 09:09 58 06/01/18 09:04 65 33 95 06/01/18 09:04 63 06/01/18 09:01 162/94 06/01/18 08:59 62 0 94 06/01/18 08:59 61 06/01/18 08:54 54 97 06/01/18 08:54 54 06/01/18 08:36 144/95 06/01/18 08:35 36.6 57 16 148/81 (103) 95 Room Air 06/01/18 08:34 62 148/91 95 06/01/18 08:34 62 Notes Mental Status: alert / awake / arousable, participated in evaluation Pt Amnestic to Procedure: Yes Nausea / Vomiting: adequately controlled Pain: adequately controlled Airway Patency, RR, SpO2: stable & adequate BP & HR: stable & adequate Hydration State: stable & adequate Anesthetic Complications: no major complications apparent
[2018-06-01 11:31] VITALS: BP 139/90; PULSE 63; O2SAT 94
--- NOTE | 2018-06-01 14:02 | OPERATIVE REPORT ---
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 POSTOPERATIVE DIAGNOSIS: Same. PROCEDURE: Right shoulder diagnostic arthroscopy with limited debridement including the debridement of some of the anterior inferior labrum as well as removal of a subcoracoid cyst. SURGEON: Peña Guerra MD. MYCOLOGY TEACHER: Alex Juarez PA-C, whose assistance was necessary for positioning the arm and help with instrumentation. ANESTHESIA: General, with a right interscalene nerve block. COMPLICATIONS: None. CONDITION: Stable to PACU. INDICATIONS: Florian is a pleasant 68-year-old male who was pulling his lawnmower up a hill about 6 weeks ago when he got sudden weakness in his right shoulder. I thought he had a rotator cuff tear, so I sent him for an MRI. MRI showed intact rotator cuff, but he was significantly weak. The MRI did show a very large subcoracoid cyst that was just medial to the coracoid, which looked like it could be compressing the suprascapular notch. He elected to undergo cyst decompression. DESCRIPTION OF PROCEDURE: On 06/01/2018, he arrived at [facility] for the above procedure. He was seen in the preoperative holding area, and the operative extremity was identified and signed. He was given a preoperative antibiotic and a right interscalene nerve block. He was taken back to the operating room and laid on table in supine position and put under general anesthesia. He was put into the beachchair position. The right shoulder was prepped and draped in sterile fashion. Timeout was done, and the patient's upper extremity was properly identified. A scope was introduced in the posterior portal. Diagnostic arthroscopy showed some grade 4 chondral damage on the anterior glenoid. There was no posterior glenoid wear. There was significant fraying of the anterior and inferior labrum. The biceps tendon was intact, with a normal size biceps katelyn mechanism. The supraspinatus, infraspinatus, teres minor, and subscapularis were all checked and intact. An anterior portal was made. A shaver was used to do a limited debridement of the labrum and get it back to stable margins. Final pictures were taken. The rotator interval was then opened up, and a 70-degree scope was used to visualize the undersurface of the coracoid. Care was taken not to disrupt any of the neurovascular structures. The undersurface of the coracoid was dissected out. There was an obvious hole through the fascia that went just posterior medial to the pectoralis minor. The cyst was easily decompressed. Pictures were taken. Arthroscopic instruments removed from the shoulder. Portal sites were closed with 3-0 nylon. He was then placed in a soft dressing and a regular arm sling. He was then extubated, transferred to a litter, and taken to the postanesthesia care unit in stable condition. He tolerated the procedure well. I attest to the content of the Intraoperative Record and any orders documented therein. Any exception s are noted below.
== END | disposition home or self-care (01) ==
LOC: X.SURG 08:21
PROVIDERS: ATTEND Orthopaedic Surgery
DX: S43.431A Superior glenoid labrum lesion of right shoulder, initial encounter (principal); X58.XXXA Exposure to other specified factors, initial encounter; G58.8 Other specified mononeuropathies; G47.33 Obstructive sleep apnea (adult) (pediatric); I12.9 Hypertensive chronic kidney disease with stage 1 through stage 4 chronic kidney disease, or unspecified chronic kidney disease; N18.9 Chronic kidney disease, unspecified; E11.9 Type 2 diabetes mellitus without complications; F32.9 Major depressive disorder, single episode, unspecified; Z88.0 Allergy status to penicillin; Z88.8 Allergy status to other drugs, medicaments and biological substances

== ENCOUNTER 2020-08-29 04:59 | Observation (INO) ==
--- NOTE | 2020-08-14 09:22 | PAT Medication Instructions ---
Medication Instructions Date of Service August 14, 2020 Home Medications Medication Instructions Recorded sildenafil (pulm.hypertension) 20 20 mg PO DAILY PRN #60 tab 06/19/19 mg tablet OneTouch Verio test strips #400 ea NS 08/13/19 albuterol sulfate 90 mcg/actuation 1 puffs INH .COMPLEX PRN #18 gm 10/29/19 aerosol inhaler labetalol 100 mg tablet 100 mg PO BID #180 tab 06/13/20 cholecalciferol (vitamin D3) 25 mcg (1,000 unit) capsule 1,000 units PO QAM ferrous sulfate 325 mg (65 mg iron) tablet 325 mg PO QAM fluoxetine 20 mg capsule 60 mg PO QAM garlic extract 600 mg tablet 1,200 mg PO QAM liothyronine 5 mcg tablet 5 mcg PO QAM omega-3 acid ethyl esters 1 gram capsule 2 cap PO QAM temazepam 30 mg capsule 30 mg PO HS trazodone 50 mg tablet 50 mg PO HS sildenafil (pulm.hypertension) 20 mg tablet 20 mg PO DAILY PRN albuterol sulfate 90 mcg/actuation aerosol inhaler 1 puffs INH .COMPLEX PRN labetalol 100 mg tablet 100 mg PO BID cinnamon bark 500 mg capsule 500 mg PO QAM Medical Marijana 1 inh INHALATION 5XD PRN amlodipine 10 mg PO QAM hydrochlorothiazide 25 mg PO QAM lisinopril 40 mg PO QAM lovastatin 40 mg PO QAM potassium chloride 40 meq PO QAM STOP taking 2 weeks before surgery (or as soon as possible if surgery is within 2 weeks) garlic extract 600 mg tablet 1,200 mg PO QAM omega-3 acid ethyl esters 1 gram capsule 2 cap PO QAM cinnamon bark 500 mg capsule 500 mg PO QAM DO NOT take the morning of surgery cholecalciferol (vitamin D3) 25 mcg (1,000 unit) capsule 1,000 units PO QAM ferrous sulfate 325 mg (65 mg iron) tablet 325 mg PO QAM sildenafil 20 mg tablet 20 mg PO DAILY PRN Medical Marijana 1 inh INHALATION 5XD PRN hydrochlorothiazide 25 mg PO QAM lisinopril 40 mg PO QAM potassium chloride 40 meq PO QAM Take morning of surgery With a small sip of water, OTHERWISE NOTHING TO EAT OR DRINK AFTER MIDNIGHT: fluoxetine 20 mg capsule 60 mg PO QAM liothyronine 5 mcg tablet 5 mcg PO QAM albuterol sulfate 90 mcg/actuation aerosol inhaler 1 puffs INH .COMPLEX PRN (use if needed; please bring with you to hospital day of surgery if possible) labetalol 100 mg tablet 100 mg PO BID amlodipine 10 mg PO QAM lovastatin 40 mg PO QAM Take evening before surgery temazepam 30 mg capsule 30 mg PO HS trazodone 50 mg tablet 50 mg PO HS sildenafil 20 mg tablet 20 mg PO DAILY PRN (if needed) albuterol sulfate 90 mcg/actuation aerosol inhaler 1 puffs INH .COMPLEX PRN (if needed) labetalol 100 mg tablet 100 mg PO BID Other Notes If you have any questions please call us at [phone] or [phone] or [phone] or [phone]
--- NOTE | 2020-08-18 10:21 | Anesthesiology Consultation ---
Date of Service August 18, 2020 Assessment & Plan (1) Encounter for pre-operative examination: - Per assessment on 08/18: Travel screen negative. No known COVID-19 positive contacts or current COVID-19 related symptoms. Surgeon arranging preop COVID testing (scheduled 08/25; MNP). Awaiting results. - Check BSG AM DOS - S/P Right shoulder arthroscopy, subacromial decompression: [place]/01/18: [place] [facility] [place] 07/06/[place]: Aware of possible hip surgery in the future. "Abrasion right hand. Third MCP joint area. Fairly significant. No evidence of infection. Will continue conservative care. Signs and symptoms of infection reviewed. Tdap today. He will call with any problems or fail to heal.. Advanced right hip osteoarthritis with pain. Undergoing as needed into articular injections. Follows with Orthopedics. He is aware that he may need replacement in the future.. Chronic pain syndrome. Using cannabis with improvement. Was able to wean and discontinue his hydrocodone while using cannabis.. Type 2 diabetes mellitus. Encouraged more frequent home glucose monitoring. Encouraged better compliance to diabetic diet and exercise program.. Hypertension. BP at goal. Medications reviewed. Continue the same. Home blood pressure monitoring discussed.. Obstructive sleep apnea. Patient doing better than before with his CPAP treatment. Not optimal but improved. Encouraged to continue weight loss program." Abrasion resolved as of subsequent PAT visit 08/18* Chart Review Chart Review: Acceptable Risk for Surgery and Patient seen in Pre Admission Te sting Teaching & Discussion . History Surgery Operation Date: 08/29/20 10:40 Proposed Procedures p Right Anterior Total Hip Arthroplasty Uncemt - Peña Guerra, Height/Weight Height: 5 ft 9 in Weight: 93.9 kg Allergies Allergy/AdvReac Type Severity Reaction Status Date / Time grass pollen Allergy Intermediate Sneezing Verified 08/13/20 12:30 house dust Allergy Intermediate Congested Verified 08/13/20 12:30 mold Allergy Intermediate Sneezing Verified 08/13/20 12:30 Penicillins Allergy Intermediate Hives Verified 08/18/20 10:17 ragweed pollen Allergy Intermediate Congested Verified 08/13/20 12:30 gabapentin [From Neurontin] Allergy Unknown Unknown Verified 08/13/20 12:30 pollen extracts Allergy Unknown Sneezing Verified 08/13/20 12:30 metoprolol AdvReac Mild GI symptoms Verified 08/18/20 10:17 Trees Allergy Intermediate Swelling Uncoded 08/13/20 12:30 of the Eye Aspirin TABS AdvReac Intermediate Gastrointestinal Uncoded 08/13/20 12:30 Upset [place] SOLN AdvReac Unknown Unknown Uncoded 08/13/20 12:30 Medications Home Medications Medication Instructions Recorded Confirmed Last Taken lancets #50 ea 03/24/19 07/07/20 Unknown blood-glucose meter #1 ea 05/18/19 07/07/20 Unknown cholecalciferol (vitamin D3) 25 1,000 units PO QAM cap 05/18/19 08/13/20 Unknown mcg (1,000 unit) capsule ferrous sulfate 325 mg (65 mg 325 mg PO QAM tab 05/18/19 08/13/20 Unknown iron) tablet fluoxetine 20 mg capsule 60 mg PO QAM cap 05/18/19 08/13/20 Unknown garlic extract 600 mg tablet 1,200 mg PO QAM tab 05/18/19 08/13/20 Unknown liothyronine 5 mcg tablet 5 mcg PO QAM #90 tab 05/18/19 08/13/20 Unknown omega-3 acid ethyl esters 1 gram 2 cap PO QAM #60 cap 05/18/19 08/13/20 Unknown capsule pen needle, diabetic 32 gauge x #10 ea 05/18/19 07/07/20 Unknown " temazepam 30 mg capsule 30 mg PO HS cap 05/18/19 08/13/20 Unknown trazodone 50 mg tablet 50 mg PO HS tab 05/18/19 08/13/20 Unknown OneTouch Verio test strips #400 ea NS 08/13/19 07/07/20 Unknown albuterol sulfate 90 mcg/actuation 1 puffs INH .COMPLEX PRN #18 gm 10/29/19 08/13/20 Unknown aerosol inhaler labetalol 100 mg tablet 100 mg PO BID #180 tab 06/13/20 08/13/20 Unknown cinnamon bark 500 mg capsule 500 mg PO QAM 07/07/20 08/13/20 Unknown Medical Marijana 1 inh INHALATION 5XD PRN 08/13/20 08/13/20 Unknown amlodipine 10 mg PO QAM 08/13/20 08/13/20 Unknown hydrochlorothiazide 25 mg PO QAM 08/13/20 08/13/20 Unknown lisinopril 40 mg PO QAM 08/13/20 08/13/20 Unknown lovastatin 40 mg PO QAM 08/13/20 08/13/20 Unknown potassium chloride 40 meq PO QAM 08/13/20 08/13/20 Unknown sildenafil 20 mg PO DAILY PRN 08/14/20 08/14/20 Unknown Past Medical History Medical History Anxiety Arthritis Durand's esophagus Benign prostatic hyperplasia with urinary obstruction Cervical spinal stenosis CKD (chronic kidney disease) stage III, follows with nephrology (Dr. Mann) Cyst of kidney, acquired under surveillance, stable x 5 years Degenerative disc disease Depression Diabetic nephropathy associated with type 2 diabetes mellitus Dyslipidemia Fibromyalgia Hypertension Macular degeneration, wet Monoclonal gammopathy of undetermined significance Obesity Obstructive sleep apnea CPAP Pain syndrome, chronic Pulmonary nodules under surveillance Type 2 diabetes mellitus NIDDM, taking cinnamon Uses inhaler device no dx asthma/COPD, inhaler rx for ragweed/tree allergy Exercise / Class Metabolic Activity III < 4 Walking/Shop/Light housework Past Family History Family History Unknown Hypertension Mother Diabetes Father Diabetes Denies family history of Ovarian cancer Prostate cancer Myocardial infarction Breast cancer Colorectal cancer Past Surgical History Surgical History H/O carpal tunnel repair R/L H/O foot surgery right History of colonoscopy History of esophagogastroduodenoscopy (EGD) History of shoulder surgery Right shoulder arthroscopy, subacromial decompression: 06[place]01/18: [place] [facility] [place] of [place]illect[place] History of tooth extraction Hx of bilateral cataract extraction Hx of cholecystectomy Hx of hernia repair Past Anesthesia History No Hx of Anesthesia Complications and No Family Hx of Anesthesia Complications History of PONV No Hx of PONV and No Hx of Motion Sickness Social History Smoking Status: Former smoker tobacco type: cigarettes Do You Dip or Chew Tobacco: Yes (1/2 pouch/day- advised NPO AM ) Smoking End Date: Quit age 26 Hx Alcohol Use: Yes Alcohol type: hard liquor alcohol intake frequency: a few times a month Hx Substance Use: Yes substance use type: marijuana Substance Use Type Other:: Medical marijuana daily- advised [facility] protocol Review of Systems Patient denies chest pain, shortness of breath, fever, chills, cough, wheezing, palpitations. Physical Exam Vital Signs VITALS BP 137/83 P 55 TEMP 98.1 SP02 97%RA RESP 16 PHYSICAL Full neck and c-spine range of motion. Full TMJ range of motion. TMD 3 finger breaths Mallampati Score 3 Dentition: full denture on upper Lungs: clear throughout to auscultation Cardiac: regular rate and rhythm, no murmurs noted Spine: normal Carotid arteries: negative bruit Extremities: no edema Trimmed hemphill Testing Laboratory Results 08/18/20 10:34 08/18/20 10:34 PT 10.1 Seconds (9.0-12.0) 08/18/20 10:34 INR 1.0 (0.9-1.1) 08/18/20 10:34 APTT 26.1 Seconds (21.0-31.0) 08/18/20 10:34 Hemoglobin A1c 7.0 % (4.5-5.6) H 08/18/20 10:34 Blood Type A Negative 08/18/20 10:34 Antibody Screen NEGATIVE 08/18/20 10:34 Electrocardiogram Date: 08/18/20 Findings: + SB @ (49) Chest X-Ray Date: 08/18/20 FINDINGS: PA and lateral chest radiographs are compared to study dated 01/04/2018 and correlated with chest CT dated 10/31/2019. The heart is top normal for projection. The mediastinal contour is within normal limits. The lungs and pleural spaces are clear. There is no pneumothorax. The bony thorax appears intact. Degenerative change is seen throughout the thoracic spine. Calcified joint bodies are noted in the left shoulder. Cholecystectomy clips are noted in the right upper quadrant. IMPRESSION: No active disease in the chest. Echocardiogram Date: 01/05/18 EF 60 to 65%. No regional wall motion abnormalities. Moderate concentric LVH. Type I diastolic dysfunction. Mild LAD. Mild MR. Small pericardial effusion without echo evidence of tamponade physiology.
[2020-08-18 11:00] LABS: Basophils # (auto) 0.02 K/uL (0-0.2); Basophils % (auto) 0.2 %; Eosinophils # (auto) 0.42 K/uL (0-0.5); Hematocrit (blood only) 42.4 % (42-52); Hemoglobin 14.4 g/dL (14.0-18.0); Immature Granulocytes # (auto) 0.05 K/uL (0.00-0.02); Immature Granulocytes % (auto) 0.5 %; Lymphocytes # (auto) 1.46 K/uL (1.2-3.4); Mean Corpuscular Hemoglobin 30.6 pg (25-34); Mean Platelet Volume 9.8 fL (7.4-10.4); Monocytes # (auto) 0.61 K/uL (0.11-0.59); Monocytes % (auto) 5.8 %; Neutrophils # (auto) 7.88 K/uL (1.4-6.5); Neutrophils % (auto) 75.5 %; Platelet Count 228 K/uL (130-400); RDW Coefficient of Variation 13.1 % (11.5-14.5); RDW Standard Deviation 43.2 fL (36.4-46.3); Red Blood Count 4.71 M/uL (4.7-6.1); White Blood Count 10.44 K/uL (4.8-10.8)
[2020-08-18 11:08] LABS: Estimated Average Glucose 154 mg/dl
[2020-08-18 11:13] LABS: Partial Thromboplastin Ratio 0.9; Partial Thromboplastin Time 26.1 Seconds (21.0-31.0); Prothrombin Time 10.1 Seconds (9.0-12.0)
--- NOTE | 2020-08-18 11:21 | Electrocardiogram Report ---
Test Reason : Blood Pressure : / mmHG Vent. Rate : 049 BPM Atrial Rate : 049 BPM P-R Int : 182 ms QRS Dur : 098 ms QT Int : 472 ms P-R-T Axes : -22 070 026 degrees QTc Int : 426 ms Sinus bradycardia Otherwise normal ECG When compared with ECG of 26-MAY-2018 14:49, No significant change was found Confirmed by Austin Ybarra ([id number]) on 08/18/2020 11:20:39 AM Referred By: Peña Guerra Confirmed By:Damien Ybarra
--- NOTE | 2020-08-18 11:26 | XRay Report ---
TWO VIEW CHEST CLINICAL HISTORY: Preoperative examination. FINDINGS: PA and lateral chest radiographs are compared to study dated 01/04/2018 and correlated with chest CT dated 10/31/2019. The heart is top normal for projection. The mediastinal contour is within n ormal limits. The lungs and pleural spaces are clear. There is no pneumothorax. The bony thorax appe ars intact. Degenerative change is seen throughout the thoracic spine. Calcified joint bodies are not ed in the left shoulder. Cholecystectomy clips are noted in the right upper quadrant. IMPRESSION: No active disease in the chest. ACT 112: Negative or not required by law. Electronically signed by: Christiano Burnette M.D. 08/18/2020 11:25 AM
[2020-08-18 11:40] LABS: BUN Creatinine Ratio 11.7 (10-20); Calcium 9.1 mg/dl (8.5-10.1); Creatinine Clr Calc Pharmacy 52.2 ml/min; Est GFR (African American) 53.8; Est GFR (Non-African American) 46.5; Potassium 3.6 mmol/L (3.5-5.1)
--- NOTE | 2020-08-27 20:23 | History & Physical Report ---
Date of Service August 27, 2020 Assessment & Plan (1) Degenerative joint disease (DJD) of hip: We will proceed with a right anterior total hip arthroplasty. Postoperatively he will be started on aspirin for DVT prophylaxis and kept overnight in the hospital for postoperative medical management. He plans to use energy physical therapy upon discharge. Present on Admission?: Yes History of Present Illness Chief Complaint: Primary osteoarthritis of the right hip Primary Care Provider: Daniel Peter MD Florian is a pleasant 70-year-old male who is been having a long history of increasing right hip pain. He underwent a series of 2 intra-articular hip injections which did not provide him much symptomatic relief. He has a difficult time ambulating. X-rays and clinical examination have been diagnostic for advanced osteoarthritis of the right hip. After failing conservative treatment, he has elected to proceed with a right anterior total hip arthroplasty. Allergies Allergy/AdvReac Type Severity Reaction Status Date / Time grass pollen Allergy Intermediate Sneezing Verified 08/13/20 12:30 house dust Allergy Intermediate Congested Verified 08/13/20 12:30 mold Allergy Intermediate Sneezing Verified 08/13/20 12:30 Penicillins Allergy Intermediate Hives Verified 08/18/20 10:17 ragweed pollen Allergy Intermediate Congested Verified 08/13/20 12:30 gabapentin [From Neurontin] Allergy Unknown Unknown Verified 08/13/20 12:30 pollen extracts Allergy Unknown Sneezing Verified 08/13/20 12:30 metoprolol AdvReac Mild GI symptoms Verified 08/18/20 10:17 Trees Allergy Intermediate Swelling Uncoded 08/13/20 12:30 of the Eye Aspirin TABS AdvReac Intermediate Gastrointestinal Uncoded 08/13/20 12:30 Upset Lyrica SOLN AdvReac Unknown Unknown Uncoded 08/13/20 12:30 Home Medications Home Medications Medication Instructions Recorded Confirmed Type lancets #50 ea 03/24/19 07/07/20 History blood-glucose meter #1 ea 05/18/19 07/07/20 History cholecalciferol (vitamin D3) 25 1,000 units PO QAM cap 05/18/19 08/13/20 History mcg (1,000 unit) capsule ferrous sulfate 325 mg (65 mg 325 mg PO QAM tab 05/18/19 08/13/20 History iron) tablet fluoxetine 20 mg capsule 60 mg PO QAM cap 05/18/19 08/13/20 History garlic extract 600 mg tablet 1,200 mg PO QAM tab 05/18/19 08/13/20 History liothyronine 5 mcg tablet 5 mcg PO QAM #90 tab 05/18/19 08/13/20 History omega-3 acid ethyl esters 1 gram 2 cap PO QAM #60 cap 05/18/19 08/13/20 History capsule pen needle, diabetic 32 gauge x #10 ea 05/18/19 07/07/20 History 5/32" temazepam 30 mg capsule 30 mg PO HS cap 05/18/19 08/13/20 History trazodone 50 mg tablet 50 mg PO HS tab 05/18/19 08/13/20 History OneTouch Verio test strips #400 ea NS 08/13/19 07/07/20 Rx albuterol sulfate 90 mcg/actuation 1 puffs INH .COMPLEX PRN #18 gm 10/29/19 08/13/20 Rx aerosol inhaler labetalol 100 mg tablet 100 mg PO BID #180 tab 06/13/20 08/13/20 Rx cinnamon bark 500 mg capsule 500 mg PO QAM 07/07/20 08/13/20 History Medical Marijana 1 inh INHALATION 5XD PRN 08/13/20 08/13/20 History amlodipine 10 mg PO QAM 08/13/20 08/13/20 History hydrochlorothiazide 25 mg PO QAM 08/13/20 08/13/20 History lisinopril 40 mg PO QAM 08/13/20 08/13/20 History lovastatin 40 mg PO QAM 08/13/20 08/13/20 History potassium chloride 40 meq PO QAM 08/13/20 08/13/20 History sildenafil 20 mg PO DAILY PRN 08/14/20 08/14/20 History Past Med/Surg History Medical History Anxiety Arthritis Durand's esophagus Benign prostatic hyperplasia with urinary obstruction Cervical spinal stenosis CKD (chronic kidney disease) stage III, follows with nephrology (Dr. Mann) Cyst of kidney, acquired under surveillance, stable x 5 years Degenerative disc disease Depression Diabetic nephropathy associated with type 2 diabetes mellitus Dyslipidemia Fibromyalgia Hypertension Macular degeneration, wet Monoclonal gammopathy of undetermined significance Obesity Obstructive sleep apnea CPAP Pain syndrome, chronic Pulmonary nodules under surveillance Type 2 diabetes mellitus NIDDM, taking cinnamon Uses inhaler device no dx asthma/COPD, inhaler rx for ragweed/tree allergy Surgical History H/O carpal tunnel repair R/L H/O foot surgery right History of colonoscopy History of esophagogastroduodenoscopy (EGD) History of shoulder surgery Right shoulder arthroscopy, subacromial decompression: 06/01/18: LMA#5 at [facility] [place] History of tonsillectomy History of tooth extraction Hx of bilateral cataract extraction Hx of cholecystectomy Hx of hernia repair Family History Unknown Hypertension Mother Diabetes Father Diabetes Denies family history of Ovarian cancer Prostate cancer Myocardial infarction Breast cancer Colorectal cancer Social History Smoking Status: Former smoker Tobacco Type: Cigarettes Age Quit Using Tobacco: 28; packs per day: 2; Second Hand Exposure: Yes; Hx Alcohol Use: Yes Alcohol type: hard liquor Hx Substance Use: Yes Prescribed Medications: Marijuana Substance Use Type Other:: Medical marijuana daily- advised [facility] protocol Preferred Language: Belarusian Communication Ability: Effective Visual Impairment: No Limitations Hearing Ability: Normal Wave Guide Assembler Required: No Beliefs That Will Affect Care: None marital status: Current Living Situation: Spouse current occupational status: retired Feels Safe at Home: Yes Childhood Exposure to Second-Hand Smoke: No Diet Comment: watch sugares caffeine: Yes (ice tea) during the past year weight has: remained stable Dental Care, Regularly: No Physical Activity Frequency: 3-4 Times per Week Physical Activity Frequency Comment: walking Seatbelt Use: always Sunscreen Use: No Assistive Devices: CPAP, Denture - Upper and Glasses Review of Systems Review of Systems: All systems reviewed & are unremarkable except as noted in HPI & below Physical Exam Constitutional: WD/WN, vitals as above Eyes: PERRL, conjunctivae normal, anicteric sclerae ENMT: external ear and nose normal, oropharynx normal Neck: trachea midline, no thyromegaly Respiratory: normal respiratory effort Cardiovascular: RRR, no murmur, no edema Gastrointestinal (Abdomen): normal bowel sounds, soft, nontender, no hepatosplenomegaly Musculoskeletal: Physical examination of the right hip reveals decreased range of motion with flexion, internal and external rotation. There is significant groin pain with forced internal rotation of the hip his leg lengths are essentially equal. Psychiatric: A+Ox3, euthymic affect Results & Data Results & Data ([facility]) Diagnostic Findings Radiographs of the right hip and pelvis demonstrate advanced osteoarthritis with joint space narrowing osteophyte formation and [id number] articulation. PG Care Time/CCT Total # of Minutes Spent Total Time Spent with Patient: Total time spent is greater than 50% in coordination of care (as documented) at patient's floor/unit and/or counseling patient: Coding Level of Care Code None Diagnoses Degenerative joint disease (DJD) of hip M16.9
[2020-08-29] MEDS ORDERED: TRANEXAMIC ACID 1,000 MG **IV Intra-op IV SCH (06:00)
[2020-08-29] MEDS ORDERED: LR 60ML/HR IV SCH (06:00)
[2020-08-29] MEDS ORDERED: TRANEXAMIC ACID / 0.7% NACL 1,000 MG/100 ML BAG IV SCH (06:00)
[2020-08-29] MEDS ORDERED: ACETAMINOPHEN 500 MG TAB PO SCH (06:00)
[2020-08-29] MEDS ORDERED: dexAMETHasone 4 MG TAB PO SCH (06:00)
[2020-08-29] MEDS ORDERED: GABAPENTIN 300 MG CAP PO SCH (06:00)
[2020-08-29] MEDS ORDERED: LR 15ML/HR IV SCH (06:00)
[2020-08-29] MEDS ORDERED: FAMOTIDINE 20 MG TAB PO SCH (06:00)
[2020-08-29] MEDS ORDERED: ceFAZolin 2000MG 2,000 MG/15 ML SYR IV SCH (06:00)
[2020-08-29] MEDS ORDERED: ROPIVACAINE 0.5% HCL/PF 150 MG, BUPIVACAINE 0.5% MPF 30 ML, EPINEPHrine 30MG/30ML (OR U... INFIL SCH (06:00)
[2020-08-29] MEDS ORDERED: BUPIVACAINE 0.5 % 5 MG/1 ML PF 10ML VIAL ONE (06:18)
[2020-08-29] MEDS ORDERED: ATROPINE SULFATE 0.1 MG/ML 10ML SYR IV PRN (06:29)
[2020-08-29] MEDS ORDERED: ONDANSETRON INJ 2 MG/ML 2 ML VIAL IV PRN ×2 (06:29→12:15)
[2020-08-29] MEDS ORDERED: fentaNYL citrate 100 MCG/2 ML VIAL IV PRN (06:29)
[2020-08-29] MEDS ORDERED: ePHEDrine sulfate 50 MG/ML AMP IV PRN (06:29)
[2020-08-29] MEDS ORDERED: ORTHO JOINT ANESTHETIC ONE (06:34)
[2020-08-29] MEDS ORDERED: MIDAZOLAM HCL 1 MG/ML 2ML VIAL ONE ×2 (06:34)
--- NOTE | 2020-08-29 07:06 | History & Physical Bridge Note ---
Date of Service August 29, 2020 History & Physical Bridge Note I have examined the patient, reviewed the History & Physical and in the interval since the performance of the History & Physical I have noted the following changes of clinical significance: no changes noted
--- NOTE | 2020-08-29 08:39 | Operative Report ---
PG Post Operative Report Pre & Post Diagnosis Operation Date: 08/29/20 07:00 Pre-Op Diagnosis: Right Hip Degenerative Joint Disease Post-Op Diagnosis: Right Hip Degenerative Joint Disease I identified the patient and participated in the time-out.: Yes Procedure Operation Date: 08/29/20 07:00 Actual Procedures p Right Anterior Total Hip Arthroplasty--Uncemented(Right) - Peña Guerra DO Surgeon Pñea Guerra, Editor Dictionary Peña Bajwa PAC Estimated Blood Loss 350 Findings Consistent with Post-Op Diagnosis Specimens Right femoral head Complications none Disposition Disposition: Recovery Room Indications Florian is a pleasant 70-year-old male who is been dealing with chronic increasing right hip and groin pain. X-rays and clinical examination have been diagnostic for advanced osteoarthritis of the right hip. After failing conservative treatment, he elected proceed with a right anterior total hip arthroplasty. Description of Procedure Implants used I used a Biomet Taperloc total hip arthroplasty system with a size 7 high offset Taperloc stem, a 52 mm G7 cup with a 25mm screw, an E1 polyethylene liner, a 36 mm ceramic head with a 0 neck. Florian arrived at the hospital for the above procedure. He was seen in the preoperative holding area and the operative extremity was identified and signed. He was given a spinal anesthetic, a preoperative antibiotic, and TXA. He was then taken back to the operating room and laid on the table in the supine position. He was given basic sedation. The operative leg was secured to a Puristst leg positioner. The hip was then prepped and draped in sterile fashion. A timeout was done and the patient and the operative extremity was properly identified. An anterior approach was used. Dissection was taken down through the fascia and the tensor muscle belly was retracted laterally and the rectus was retracted medially. The circumflex vessels were identified and ligated. The capsule was then incised and tagged for later repair. The femoral neck was then cut and the femoral head was removed. The acetabulum was exposed. Time was spent doing a complete circumferential labral release. Sequential reaming of the acetabulum up to a size 51 reamer was done. Final reamings were done under fluoroscopy to ensure appropriate version. A Biomet 52 mm G7 cup was then impacted into place. A single 25 mm screw was placed. The E1 polyethylene liner was then snapped into place. Surrounding soft tissues were then injected with 100 cc of an orthopedic pain control cocktail. The proximal femur was then exposed. Sequential broaching up to a size 9 broach was done. Off that broach a size 36 head with a 0 neck was trialed. The hip was reduced and fluoroscopic images showed anatomic alignment of the implants in acceptable length. The broach was removed. The final size 9 high offset Taperloc stem was then impacted into place. A ceramic 36 mm head with a standard neck was then impacted onto the stem and the hip was reduced. Final fluoroscopic images showed anatomic alignment of the hip. The capsule was then closed with #1 Vicryl suture. A dilute betadyne lavage was then done for 3 minutes. The joint was then irrigated with normal saline solution. The fascia was closed with #1 PDS suture. Skin was closed with 2-0 Vicryl, merna, and a Silverlon dressing. He was then transferred to a hospital bed and taken to the post anesthesia care unit in stable condition. He tolerated the procedure well. Peña Bajwa PA-C, was present for the entire procedure. He was critical for patient positioning, prepping, draping, retraction exposure, wound closure and application of sterile dressing. I attest to the content of the Intraoperative Record and any orders documented therein. Any exceptions are noted below.
[2020-08-29] MEDS ORDERED: PROPOFOL IV EMULSION 10 MG/ML 20 ML VIAL IV ONE (08:40)
[2020-08-29] MEDS ORDERED: LIDOCAINE HCL 2% 2 ML VIAL/AMP(20MG/ML) INFIL ONE (08:40)
--- NOTE | 2020-08-29 10:24 | Anesthesiology Progress Note ---
Date of Service August 29, 2020 Anesthesia Post Procedure Vital Signs Vital Signs: Temp Pulse Pulse Resp BP Pulse Ox 08/29/20 10:15 56 L 15 120/72 94 08/29/20 10:00 97.3 F L 61 14 119/79 93 08/29/20 09:50 69 15 122/74 93 08/29/20 09:40 58 L 14 122/74 96 08/29/20 09:30 61 13 126/78 94 08/29/20 09:20 68 14 122/75 94 08/29/20 09:10 68 16 116/82 98 08/29/20 09:02 97.7 F 77 14 113/76 96 08/29/20 05:55 50 L 18 134/78 98 08/29/20 05:15 98.1 F 46 L 18 143/81 H 97 Transfer of Care Handoff Completed per policy Notes Mental Status: alert / awake / arousable and participated in evaluation Patient Amnestic to Procedure: Yes Nausea / Vomiting: adequately controlled Pain: adequately controlled Airway Patency, RR, SpO2: stable & adequate BP & HR: stable & adequate Hydration State: stable & adequate Neuraxial Anesthesia: was administered and sensory block is resolving Anesthetic Complications: no major complications apparent and Pt Satisfied with anesthetic care
--- NOTE | 2020-08-29 10:24 | Fluoroscopy Report ---
FL hip RT 1V HISTORY: 70 years-old Male RT ANTERIOR right hip total joint arthroplasty COMPARISON: Pelvis and hip radiographs 05/07/2020 TECHNIQUE: 2 spot fluoroscopic images of the right hip were obtained utilizing 28.3 seconds fluorosco py time FINDINGS: Right hip total arthroplasty demonstrates satisfactory alignment. No acute fracture or retained forei gn body. Expected postsurgical soft tissue swelling and deep tissue air. IMPRESSION: Fluoroscopic assistance as above. Please see operative report for further details. ACT 112: Negative or not required by law. The above report was generated using voice recognition software. It may contain grammatical, syntax o r spelling errors. Electronically signed by: Homer Whyte M.D. 08/29/2020 8:43 AM
--- NOTE | 2020-08-29 10:25 | XRay Report ---
XR hip 1V RT w pelvis HISTORY: 70 years-old Male IN PACU - A/P PELVIS and LATERAL HIP right hip total joint arthroplasty COMPARISON: Fluoroscopic images of the right hip of same day TECHNIQUE: AP view of the pelvis with 2 views of the right hip FINDINGS: Right hip total joint arthroplasty demonstrates satisfactory alignment. Lateral skin merna are note d along with expected postsurgical soft tissue swelling and deep tissue air. There is no acute fractu re, dislocation or unexpected opaque foreign body. Moderate left hip posterior arthritis. IMPRESSION: Right hip total joint arthroplasty with expected postoperative changes. ACT 112: Negative or not required by law. The above report was generated using voice recognition software. It may contain grammatical, syntax o r spelling errors. Electronically signed by: Homer Whyte M.D. 08/29/2020 9:50 AM
[2020-08-29] MEDS ORDERED: traMADol HCL 50 MG TABLET PO PRN (12:15)
[2020-08-29] MEDS ORDERED: bisacodyL 10 MG SUPP PR PRN (12:15)
[2020-08-29] MEDS ORDERED: MAGNESIUM HYDROXIDE SUSP 30 ML UDC PO PRN (12:15)
[2020-08-29] MEDS ORDERED: SODIUM CHLORIDE 0.9% 1000ML 1,000 ML IV SCH (12:15)
[2020-08-29] MEDS ORDERED: NALOXONE HCL 0.4 MG/1 ML VIAL/CARP IV PRN (12:15)
[2020-08-29] MEDS ORDERED: ALBUTEROL HFA 8 GM INHALER INH PRN (12:15)
[2020-08-29] MEDS ORDERED: HYDROmorphone INJ 0.5 MG/0.5 ML SYR IV PRN (12:15)
[2020-08-29] MEDS ORDERED: METOCLOPRAMIDE HCL INJ 5 MG/ML 2 ML VIAL IV PRN (12:15)
[2020-08-29] MEDS ORDERED: NON-FORMULARY MEDICATION (Sildenafil 20 MG) PO PRN (12:15)
[2020-08-29] MEDS ORDERED: PHARMACY GLYCEMIC MGMT CONSULT PRN (12:39)
[2020-08-29] MEDS ORDERED: GLUCOSE 40% GEL 15 GM TUBE PO PRN (12:45)
[2020-08-29] MEDS ORDERED: CARBOHYDRATES FOR HYPOGLYCEMIA PO PRN (12:45)
[2020-08-29] MEDS ORDERED: DEXTROSE 50% 50 ML SYRINGE IV PRN (12:45)
[2020-08-29] MEDS ORDERED: GLUCOSE 10 TABS/TUBE PO PRN (12:45)
[2020-08-29] MEDS ORDERED: GLUCAGON FOR INJ 1 MG VIAL IM PRN (12:45)
--- NOTE | 2020-08-29 12:52 | Pharmacy Report ---
Glycemic Control Consultation - Date of Service August 29, 2020 - Scope Scope: Glycemic Pharmacist consulted for glycemic control and to write orders per [facility] inpatient glycemic control protocol. - Objective Weight: 93.582 kg Accuchecks BSG (last 24hrs): 08/29/20 08/29/20 08/29/20 05:20 09:12 12:35 POC Glucose 148 H 199 H 197 H HbA1c: Hemoglobin A1c 7.0 % (4.5-5.6) H 08/18/20 10:34 - Recent Pertinent Medications Outpatient Anti-diabetic Regimen: * Diet-controlled w/ SMBG * A1c = 7 % (08/18/20) - Assessment & Plan Assessment & Plan: ASSESSMENT: * STACIE is a 70 year old male POD #0 s/p right total hip arthroplasty * Patient received PO dexamethasone 8 mg + intra-articular orthomix perioperatively * BSGs today of 148, 199, and 197 mg/dL * Will give one-time NPH dose (~0.3 unit/kg) to cover perioperative steroids * HbA1c of 7% - patient does not take any antidiabetic medications as an outpatient, diet-controlled PLAN FOR INPATIENT GLYCEMIC CONTROL: * Basal insulin * NPH 28 units (0.3 unit/kg) x 1 * Bolus insulin * NovoLog per scale ACHS or Q6hrs while NPO * Goal Range: Low 110 mg/dL - High 140 mg/dL * Correction Factor: 20 mg/dL/unit * Nutritional / Prandial insulin per carb ratio of 1 unit per 7 grams CHO consumed * Will add one overnight check at 0200 with same parameters * Please note that the plan above was derived based on current level of insulin resistance and hospital stress. These recommendations are appropriate for inpatient admission only. Plan of care upon discharge will need to be reassessed to avoid potential outpatient hypo/hyperglycemia. Thank you.
[2020-08-29] MEDS ORDERED: NovoLIN-N (NPH) PER UNIT CHARGE SQ ONE (13:00)
[2020-08-29] MEDS: INSULIN ASPART 100 UNITS/ML 3 ML PEN SC SCH ×3 (13:51→21:13)
[2020-08-29] MEDS: KETOROLAC TROMETHAMINE 15 MG/ML VIAL IV SCH ×2 (13:55→18:36)
[2020-08-29] MEDS: ACETAMINOPHEN 500 MG TAB PO SCH ×2 (13:55→21:07)
[2020-08-29] MEDS: ceFAZolin 2000MG 2,000 MG/15 ML SYR IV SCH ×2 (13:56→21:27)
[2020-08-29] MEDS ORDERED: TEMAZEPAM 15 MG CAPSULE PO SCH (21:00)
[2020-08-29] MEDS ORDERED: traZODone HCL 50 MG TAB PO SCH (21:00)
[2020-08-29] MEDS ORDERED: SENNA 8.6 MG TAB PO SCH (21:00)
[2020-08-29] MEDS: DOCUSATE SODIUM 100 MG CAP PO SCH (21:05)
[2020-08-29] MEDS: ASPIRIN 81 MG ECTAB PO SCH (21:05)
[2020-08-29] MEDS: LABETALOL HCL 100 MG TAB PO SCH (21:07)
[2020-08-30] MEDS: KETOROLAC TROMETHAMINE 15 MG/ML VIAL IV SCH ×2 (01:58→06:16)
[2020-08-30] MEDS ORDERED: INSULIN ASPART 100 UNITS/ML 3 ML PEN SC SCH (02:00)
[2020-08-30] MEDS: ACETAMINOPHEN 500 MG TAB PO SCH (06:16)
[2020-08-30 07:57] LABS: Basophils # (auto) 0.01 K/uL (0-0.2); Basophils % (auto) 0.1 %; Eosinophils # (auto) 0.02 K/uL (0-0.5); Eosinophils % (auto) 0.1 %; Hematocrit (blood only) 32.7 % (42-52); Hemoglobin 11.5 g/dL (14.0-18.0); Immature Granulocytes # (auto) 0.03 K/uL (0.00-0.02); Immature Granulocytes % (auto) 0.2 %; Lymphocytes # (auto) 1.11 K/uL (1.2-3.4); Lymphocytes % (auto) 6.6 %; Mean Corpuscular Hemoglobin 30.4 pg (25-34); Mean Corpuscular Hgb Conc 35.2 g/dL (32-36); Mean Corpuscular Volume 86.5 fL (80-100); Mean Platelet Volume 9.5 fL (7.4-10.4); Monocytes # (auto) 1.46 K/uL (0.11-0.59); Monocytes % (auto) 8.7 %; Neutrophils # (auto) 14.24 K/uL (1.4-6.5); Neutrophils % (auto) 84.3 %; Platelet Count 191 K/uL (130-400); RDW Coefficient of Variation 12.8 % (11.5-14.5); RDW Standard Deviation 40.8 fL (36.4-46.3); Red Blood Count 3.78 M/uL (4.7-6.1); White Blood Count 16.87 K/uL (4.8-10.8)
--- NOTE | 2020-08-30 08:05 | Orthopedic Progress Note ---
Date of Service August 30, 2020 Assessment & Plan (1) Status post right hip replacement: Overall is doing very well. Is not having much pain in the right hip. He will be seen by physical therapy today for ambulation and range of motion exercises he is on aspirin for DVT prophylaxis. We talked about his history of GI upset with aspirin, and we talked about the risks and benefits of other anticoagulant agents. He would like to try the aspirin. He will take it with some food. He can be discharged to home later today. He will follow-up with orthopedics in 2 weeks. Present on Admission?: Yes Admission and Anticipated Discharge Date Admission Date: August 29, 2020 Sierra Du was seen and examined at bedside this morning. Overall he is doing well. Is not having any pain in the right hip. He has been up and walking around the hallways. He has no complaints. Physical Exam 2 Physical Exam: On physical examination of the right hip, he is lying comfortably. He has active dorsiflexion and plantarflexion of his right ankle. The dressing is clean and dry. Results & Data ([facility]) Vital Signs (Past 12 Hours) Vital Signs Temp Pulse Pulse Resp BP Pulse Ox 08/30/20 07:38 36.5 C 76 17 147/75 H 96 08/30/20 04:00 36.6 C 75 20 146/77 H 94 08/29/20 23:37 36.5 C 68 16 149/78 H 94 08/29/20 21:00 66 137/77 Laboratory Results H & H 08/18/20 08/30/20 Range/Units 10:34 07:48 Hgb 14.4 11.5 L (14.0-18.0) g/dL Hct 42.4 32.7 L (42-52) % Coagulation 08/18/20 Range/Units 10:34 INR 1.0 (0.9-1.1) Diagnostic Findings Postoperative x-rays of the right hip show the prosthesis to be in anatomic alignment without any evidence of fracture, dislocation, or loosening. PG Care Time/CCT Total # of Minutes Spent Total Time Spent with Patient: Total time spent is greater than 50% in coordination of care (as documented) at patient's floor/unit and/or counseling patient: Coding Level of Care Code None Diagnoses Status post right hip replacement Z96.641
--- NOTE | 2020-08-30 08:07 | Discharge Summary ---
Date of Service August 30, 2020 Admission HPI Per Admitting Provider Florian is a pleasant 70-year-old male who is been having a long history of increasing right hip pain. He underwent a series of 2 intra-articular hip injections which did not provide him much symptomatic relief. He has a difficult time ambulating. X-rays and clinical examination have been diagnostic for advanced osteoarthritis of the right hip. After failing conservative treatment, he has elected to proceed with a right anterior total hip arthroplasty. Principal Diagnosis Right hip replacement Discharge Data Allergies Allergy/AdvReac Type Severity Reaction Status Date / Time grass pollen Allergy Intermediate Sneezing Verified 08/29/20 05:23 house dust Allergy Intermediate Congested Verified 08/29/20 05:23 mold Allergy Intermediate Sneezing Verified 08/29/20 05:23 Penicillins Allergy Intermediate Hives Verified 08/29/20 05:23 ragweed pollen Allergy Intermediate Congested Verified 08/29/20 05:23 gabapentin [From Neurontin] Allergy Unknown Unknown Verified 08/29/20 05:23 pollen extracts Allergy Unknown Sneezing Verified 08/29/20 05:23 metoprolol AdvReac Mild GI symptoms Verified 08/29/20 05:23 Trees Allergy Intermediate Swelling Uncoded 08/13/20 12:30 of the Eye Aspirin TABS AdvReac Intermediate Gastrointestinal Uncoded 08/13/20 12:30 Upset Lyrica SOLN AdvReac Unknown Unknown Uncoded 08/13/20 12:30 Consultations 08/30/20 08:00 Consult Case Management - Discharge Planning Routine Procedures Performed Operation Date: 08/29/20 07:00 Actual Procedures p Right Anterior Total Hip Arthroplasty--Uncemented(Right) - Peña Guerra DO Ordered Studies 08/29/20 07:00 FL fluoroscopy <1hr Routine FL hip RT 1V Routine Hospital Course (1) Status post right hip replacement: On August 29, 2020 Yaw arrived at [facility] and underwent a right hip replacement without complication. He had a spinal anesthetic. Postoperatively he was started on aspirin for DVT prophylaxis and transferred to the general orthopedic floors. His hospital course was uneventful. On postop day #1 his H&H was stable and his pain was well controlled. He was able to participate well with physical therapy doing ambulation and range of motion exercises. He was then discharged home. He will follow-up with orthopedics in 2 weeks. Total Time Total Time Spent Total Time Spent (In Minutes): 20 Discharge Plan Discharge Items Patient Disposition: Home - Home Health Services Reason For Visit: DJD Right Hip Discharge Diagnosis: Right hip replacement Activity: As commented below Non-emergency contact: Surgeon Call non-emergency contact if: your wound has increased redness and your wound has increased drainage Follow-up/Referrals: Daniel Peter MD [Primary Care Provider] - Diet: Regular Addtl Attending Provider Instructions: Activity and Therapy Recommendations: * If you are using [facility] then therapy will be provided at your home until they feel you have accomplished all of your goals. * If you are using [facility] then Physical Therapy will be provided until they feel you are ready to start Outpatient Physical Therapy. * If you are not using home therapy then Outpatient Physical Therapy should start about 3-5 days from your day of surgery. Therapy will last about 6-10 weeks * You were shown a series of exercises in the hospital. Do these exercises three times each day including the exercises you were shown in physical therapy. * Get up and walk several times each day.~ For the first four weeks, try not to stand or walk for more than one hour at a time. If you do stand or walk for more than one hour, you will not hurt anything, but your leg will likely swell.~~ * As you feel comfortable, you may change from the walker or crutches to a cane and~then to independent walking. Medications: * Narcotic You will likely be sent home from the hospital with a prescription for the narcotic pain medication that worked best throughout your stay. * Aspirin Most patients will be required to take Aspirin 81mg twice a day for 6 weeks after surgery. This is obtained [id number] and a prescription is not necessary. * Other medications may be prescribed for specific circumstances. If you have any questions, please call the office at . * Resume previous home medications unless otherwise instructed TEDs/Elastic Stockings: The white elastic stockings help limit swelling and prevent blood clots from forming in your legs. The more you wear them, the more they work. Wear them for six weeks. Dressing Care: Leave the Silverlon dressing in place for 7 days. After 7 days you may remove the dressing. If the incision is not draining then you may leave the merna open to air. If there is a little bit of drainage or if the merna are getting stuck on your clothing then cover the incision with a dry dressing. The merna will be removed at your 2 week follow-up appointment. Showering: You may shower with the Silverlon dressing in place. Do not let the shower spray hit the dressing directly. Pat the Silverlon dressing dry. If the dressing becomes wet underneath, then simply remove the dressing. Keep the incision dry until you are 7 days out from the day of surgery. After 7 days you may remove the Silverlon dressing and shower with the merna exposed. Let soapy water run over the merna and pat them dry. Do not scrub or soak the incision. Things To Watch For: * Drainage from the incision site that occurs more than one week after your surgery. * Increased redness at the incision site. * Fever above 102 degrees Fahrenheit. * Unusual chest pain or shortness of breath. * Call [facility] at with any of the above artur santiago Follow-Up Visit: Follow-up with Dr. Guerra's PA (Peña Bajwa) 2-3 weeks after your day of surgery. He will remove your merna and answer any questions. If you have any additional questions or concerns, Dr Guerra is usually in the office at the same time and will be available An appointment was probably scheduled when you signed-up for surgery in the office. If you have any questions call Office Instructions: More detailed instructions as well as Frequently Asked Questions were provided in a folder by our office when you signed-up for surgery. Please review these instructions when you get home. If you have any further questions or concerns, please feel free to call the office at [phone] Pending Studies at Discharge: No Stand-Alone Forms: [facility] [employer], Smoking Cessation Medications and DC Order Prescriptions: New tramadol 50 mg Tablet 50 mg PO Q4H PRN (Reason: pain) Qty: 30 RF: 0 aspirin 81 mg Tablet,Delayed Release (Dr/Ec) 81 mg PO BID 42 Days Qty: 84 RF: 0 Continued (DME) OneTouch Verio test strips strip See Dose Instructions .ROUTE .MEDSUPPLY Qty: 400 RF: 3 labetalol 100 mg tablet 100 mg PO BID Qty: 180 RF: 3 garlic extract 600 mg tablet 1,200 mg PO QAM RF: 0 (DME) pen needle, diabetic [BD Ultra-Fine Ivis Pen Needle] 32 gauge x 5/32" needle See Dose Instructions .ROUTE .MEDSUPPLY Qty: 10 RF: 0 (DME) blood-glucose meter [OneTouch Verio Meter] mis See Dose Instructions .ROUTE .MEDSUPPLY Qty: 1 RF: 0 albuterol sulfate [Ventolin HFA] 90 mcg/actuation HFA aerosol inhaler 1 puffs INH .COMPLEX PRN (Reason: shortness of breath or wheezing) Qty: 18 RF: 0 cinnamon bark [Cinnamon] 500 mg capsule 500 mg PO QAM RF: 0 (DME) lancets [OneTouch UltraSoft Lancets] [facility] [place] See Dose Instructions .ROUTE .MEDSUPPLY Qty: 50 RF: 0 cholecalciferol (vitamin D3) 1,000 unit capsule 1,000 units PO QAM RF: 0 ferrous sulfate 325 mg (65 mg iron) tablet 325 mg PO QAM RF: 0 fluoxetine 20 mg capsule 60 mg PO QAM RF: 0 liothyronine 5 mcg tablet 5 mcg PO QAM Qty: 90 RF: 0 omega-3 acid ethyl esters 1 gram capsule 2 cap PO QAM Qty: 60 RF: 0 temazepam 30 mg capsule 30 mg PO HS RF: 0 trazodone 50 mg tablet 50 mg PO HS RF: 0 lovastatin 40 mg tablet 40 mg PO QAM RF: 0 amlodipine 10 mg tablet 10 mg PO QAM RF: 0 hydrochlorothiazide 25 mg tablet 25 mg PO QAM RF: 0 lisinopril 40 mg tablet 40 mg PO QAM RF: 0 potassium chloride 20 mEq tablet extended release 40 meq PO QAM RF: 0 Medical Marijana 1 inh inhalation 5XD PRN (Reason: Pain) RF: 0 sildenafil 20 mg PO DAILY PRN (Reason: Sexual Activity) RF: 0 Discharge Orders: Discharge Order (Routine); Ordered 08/30/20 Ordered By: Peña Guerra Admission Data Admit Date/Time: 08/29/20 09:05 Attending Provider: Peña Guerra Admit Provider: Peña Guerra Primary Care Provider: Daniel Peter Coding Level of Care Code D/C Day Management <30 mins Diagnoses Status post right hip replacement Z96.641
[2020-08-30 08:21] LABS: BUN Creatinine Ratio 16.7 (10-20); Calcium 8.6 mg/dl (8.5-10.1); Creatinine Clr Calc Pharmacy 51.2 ml/min; Est GFR (African American) 52.6; Est GFR (Non-African American) 45.4; Potassium 3.3 mmol/L (3.5-5.1)
[2020-08-30] MEDS ORDERED: POTASSIUM CHLORIDE CRTAB 20 MEQ TABCR PO SCH (09:00)
[2020-08-30] MEDS ORDERED: hydroCHLOROthiazide 25 MG TAB PO SCH (09:00)
[2020-08-30] MEDS ORDERED: MULTIVITAMIN TAB PO SCH (09:00)
[2020-08-30] MEDS ORDERED: FERROUS SULFATE 325 MG TAB PO SCH (09:00)
[2020-08-30] MEDS ORDERED: LOVASTATIN 20 MG TAB PO SCH (09:00)
[2020-08-30] MEDS ORDERED: lisinopril 40 MG TAB PO SCH (09:00)
[2020-08-30] MEDS ORDERED: amLODIPine BESYLATE 5 MG TAB PO SCH (09:00)
[2020-08-30] MEDS ORDERED: LIOTHYRONINE SODIUM 5 MCG TAB PO SCH (09:00)
[2020-08-30] MEDS ORDERED: FLUoxetine HCL 20 MG CAP PO SCH (09:00)
[2020-08-30] MEDS: LABETALOL HCL 100 MG TAB PO SCH (09:12)
[2020-08-30] MEDS: ASPIRIN 81 MG ECTAB PO SCH (09:13)
[2020-08-30] MEDS: DOCUSATE SODIUM 100 MG CAP PO SCH (09:13)
[2020-08-30] MEDS: INSULIN ASPART 100 UNITS/ML 3 ML PEN SC SCH (09:16)
== END 2020-08-30 12:20 | disposition home or self-care (01) ==
LOC: ASU 04:59 → 3N 04:59